=== PATIENT | male | born 1935 | race Caucasian/White ===

== ENCOUNTER 2019-07-03 08:34 | Inpatient (IN) ==
[2019-07-03] MEDS ORDERED: 0.9 % SODIUM CHLORIDE 1,000 ML IV ONE (08:46)
[2019-07-03] MEDS ORDERED: IPRATROPIUM/ALBUTEROL 3 ML AMPUL.NEB NEB ONE ×2 (08:46→10:09)
--- NOTE | 2019-07-03 08:57 | Emergency Department Note ---
SOB HPI - General Chief Complaint: Shortness of Breath/Dyspnea Stated Complaint: shortness of breath Time Seen by Provider: 07/03/19 08:55 Source: patient Mode of arrival: ambulatory Limitations: no limitations - History of Present Illness This patient has a history of COPD and for the last several days has had increasing shortness of breath wheezing and cough and has developed a fever. He said he had pneumonia twice last year. He is improving now after a DuoNeb treatment. - Related Data Home Medications Medication Instructions Recorded Confirmed latanoprost 0.005 % eye drops 1 drp OPHTHALMIC QHS ml 08/09/15 07/03/19 vit C-vit L-pbrdml-aicx ox-lutein 1 cap PO BID cap 08/09/15 07/03/19 226 mg-200 unit-5 mg-0.8 mg capsule Magnesium Oxide [Mag-Oxide 500 mg PO QDAY 07/03/19 07/03/19 Magnesium] Previous Rx's Medication Instructions Recorded budesonide-formoterol HFA 80 1 inh INHALATION BID #6.9 g 05/19/18 mcg-4.5 mcg/actuation aerosol inhaler albuterol sulfate 90 mcg/actuation 2 puff INHALATION Q6H PRN #18 g 03/08/19 aerosol inhaler trazodone 50 mg tablet 50 mg PO QHS PRN #90 tab 03/08/19 Allergies Allergy/AdvReac Type Severity Reaction Status Date / Time Amoxicillin Allergy Severe Hives, Verified 07/03/19 10:10 swelling, difficulty breathing Penicillins Allergy Unknown Hives, Verified 07/03/19 10:10 Swelling, difficulty breathing. Review of Systems All systems ED: reviewed and negative except as stated. Past Medical History - Past Medical History [facility] Narrative: Medical History (Last Reviewed 12/28/18 @ 16:25 by Rohit Martínez MD) Bronchitis with bronchospasm (Chronic) Diverticulitis of intestine (Resolved) Diverticulitis (Resolved) Acute exacerbation of chronic obstructive airways disease (Resolved) Urinary incontinence (Chronic) Tachycardia (Chronic) Reactive airway disease (Chronic 12/28/13) Prostate cancer (Chronic) Pneumonia (Resolved) Paresthesia (Chronic) Osteoarthritis (Chronic) Onychomycosis (Chronic) Macular degeneration (Chronic) Irritable bowel syndrome (Chronic) Insomnia (Chronic 12/06/13) Inguinal pain (Chronic 08/26/13) Hypertrophic pyloric stenosis (Chronic) Hypertension, essential (Chronic) Glaucoma (Chronic 08/26/13) Gastroesophageal reflux (Chronic) Fatigue (Chronic) Dysuria (Chronic) Diverticulosis of colon (Chronic) Dermatitis (Chronic) Colon adenoma (Chronic) COPD (chronic obstructive pulmonary disease) (Chronic) Bilateral cataracts (Chronic) Bronchitis (Chronic) Anxiety (Chronic 12/06/13) Past Surgical History (Last Reviewed 12/28/18 @ 16:25 by Rohit Martínez MD) Hx of esophagogastroduodenoscopy (Chronic) Hx of colonoscopy (Chronic) H/O prostatectomy (Resolved) History of cataract surgery (Resolved) History of cataract surgery (Resolved) Hx of detached retina repair (Inactive) Hx of elbow surgery (Inactive) Hx of inguinal hernia repair (Inactive) Hx of radical prostatectomy (Inactive) Family History (Last Reviewed 12/28/18 @ 16:25 by Rohit Martínez MD) none listed Diabetes mellitus Cardiac disease father Coronary artery disease Irritable bowel syndrome Acute myocardial infarction brother Irritable bowel syndrome Medical history: Reports: arthritis, COPD, hypertension, other (macular degeneration. Pneumonia 5 times 2012-mane. insomnia. Glaucoma. ). Denies: asthma, CHF, CAD (coronary artery disease), CVA, DVT, DM, pulmonary embolus Surgical history ED: Reports: cataract - Social History smoking status: Former smoker Alcohol use: Reports: Occasionally, Frequently (3 or 4 times a week a small glass of wine) Physical Exam Limitations: no limitations General appearance: alert Head: atraumatic Eye: Present: normal appearance ENT: Present: normal exam Neck: Present: normal inspection Chest: Present: normal inspection Respiratory: Present: wheezes Cardiovascular: Present: regular rate, normal rhythm, normal heart sounds Abdominal: Present: soft. Absent: distention, tenderness Extremities: Absent: pedal edema, pretibial edema Neurological: Present: alert Psychiatric: Present: normal affect Skin: Present: warm, dry Course Vital Signs Temperature 100.7 F H 07/03/19 08:37 Pulse Rate 107 H 07/03/19 08:37 Respiratory Rate 35 H 07/03/19 08:37 Blood Pressure 144/74 07/03/19 08:37 Pulse Oximetry (%) 85 L 07/03/19 08:37 Temperature 101.6 F H 07/03/19 11:05 Pulse Rate 111 H 07/03/19 11:19 Respiratory Rate 22 09/22/19 11:19 Blood Pressure 116/64 07/03/19 11:15 Pulse Oximetry (%) 91 07/03/19 11:19 Shortness of Breath/Dyspnea - [facility] Narrative Medical decision making narrative: This patient has bibasilar pneumonia. His breathing did improve with a DuoNeb treatment and some Solu-Medrol. He was febrile. We did blood cultures and gave him Rocephin and Levaquin. He will be admitted to the hospital by the hospitalist service. - Lab Data Lab results reviewed: Yes I reviewed the patient's lab results. Result diagrams: 07/03/19 08:47 07/03/19 09:56 Lab Results 07/03/19 07/03/19 07/03/19 Range/Units 08:46 08:47 08:47 WBC 13.6 H (4.5-11.0) K/mcL RBC 4.86 (4.50-5.90) M/mcL Hgb 14.8 (13.5-16.5) g/dL Hct 45.6 (41.0-55.0) % MCV 93.9 (80.0-100.0) fL MCH 30.5 (26.0-34.0) pg MCHC 32.5 (31.0-36.0) g/dL RDW 14.9 H (11.5-14.5) % Plt Count 144 (140-440) K/mcL MPV 9.3 (7.4-10.4) fL Gran % 89.6 H (38.0-78.0) % Lymph % (Auto) 2.4 L (15.5-49.0) % Keith % (Auto) 7.9 (1.0-12.0) % Eos % (Auto) 0 (0.0-7.0) % Baso % (Auto) 0.1 (0.0-2.0) % Gran # 12.2 H (1.8-8.0) K/mcL Lymph # (Auto) 0.3 L (1.5-4.8) K/mcL Keith # (Auto) 1.1 H (0.1-0.9) K/mcL Eos # (Auto) 0 (0.0-0.7) K/mcL Baso # (Auto) 0 (0.0-0.3) K/mcL VBG Lactic Acid 2.7 H (0.5-2.0) mmol/L Sodium (133-145) mmol/L Potassium (3.3-5.1) mmol/L Chloride (96-108) mmol/L Carbon Dioxide (22-30) mmol/L Anion Gap (8-16) BUN (8-23) mg/dl Creatinine (0.7-1.2) mg/dl GFR Calculation Glucose (70-105) mg/dL Calcium (8.6-10.4) mg/dl Total Bilirubin (0.0-1.0) mg/dL AST (0-37) U/l ALT (0-40) U/l Alkaline Phosphatase (39-117) U/L Troponin T (0-0.03) ng/ml Total Protein (5.9-8.4) gm/dL Albumin (3.2-5.2) gm/dL Globulin (2.2-3.7) gm/dL Albumin/Globulin Ratio (1.0-2.3) Procalcitonin 1.02 (<0.10) ng/mL 07/03/19 07/03/19 Range/Units 09:56 09:56 WBC (4.5-11.0) K/mcL RBC (4.50-5.90) M/mcL Hgb (13.5-16.5) g/dL Hct (41.0-55.0) % MCV (80.0-100.0) fL MCH (26.0-34.0) pg MCHC (31.0-36.0) g/dL RDW (11.5-14.5) % Plt Count (140-440) K/mcL MPV (7.4-10.4) fL Gran % (38.0-78.0) % Lymph % (Auto) (15.5-49.0) % Keith % (Auto) (1.0-12.0) % Eos % (Auto) (0.0-7.0) % Baso % (Auto) (0.0-2.0) % Gran # (1.8-8.0) K/mcL Lymph # (Auto) (1.5-4.8) K/mcL Keith # (Auto) (0.1-0.9) K/mcL Eos # (Auto) (0.0-0.7) K/mcL Baso # (Auto) (0.0-0.3) K/mcL VBG Lactic Acid (0.5-2.0) mmol/L Sodium 138 (133-145) mmol/L Potassium 4.9 (3.3-5.1) mmol/L Chloride 102 (96-108) mmol/L Carbon Dioxide 28 (22-30) mmol/L Anion Gap 8.0 (8-16) BUN 23 (8-23) mg/dl Creatinine 1.2 (0.7-1.2) mg/dl GFR Calculation 55 Glucose 122 H (70-105) mg/dL Calcium 9.0 (8.6-10.4) mg/dl Total Bilirubin 1.7 H (0.0-1.0) mg/dL AST 17 (0-37) U/l ALT 7 (0-40) U/l Alkaline Phosphatase 66 (39-117) U/L Troponin T < 0.01 (0-0.03) ng/ml Total Protein 6.6 (5.9-8.4) gm/dL Albumin 3.6 (3.2-5.2) gm/dL Globulin 3.0 (2.2-3.7) gm/dL Albumin/Globulin Ratio 1.2 (1.0-2.3) Procalcitonin (<0.10) ng/mL - Radiology Data Radiology results reviewed: Yes I reviewed the patient's radiology results. Disposition Pt seen by PENSIONHOLDER INFORMATION CLERK/PA only: No Clinical Impression: Community acquired pneumonia Disposition: Xfer As Inpt ([facility]) Condition: Good Referrals: Brennan Kelly DO [Primary Care Provider] - Time of Disposition: 11:22
[2019-07-03] MEDS ORDERED: LEVOFLOXACIN 750 MG/150 ML BAG IV ONE (09:12)
[2019-07-03] MEDS ORDERED: cefTRIAXone 1 GM VIAL IV ONE (09:12)
--- NOTE | 2019-07-03 09:21 | XRay Report ---
HISTORY: Dyspnea FINDINGS: There are bibasilar alveolar infiltrates, right worse than left. They are superimposed upon underlying pulmonary fibrosis. The infiltrates have become significantly worse since 12/20/18. There is COPD with milder interstitial fibrosis in the mid and upper lung campbell. The heart size is normal. IMPRESSION: Bibasilar pneumonia superimposed upon COPD Interpreted and Authenticated by: Thai Chavis 07/03/19
[2019-07-03 09:33] LABS: Basophils # (Auto) 0 K/mcL (0.0-0.3); Basophils % (Auto) 0.1 % (0.0-2.0); Eosinophils # (Auto) 0 K/mcL (0.0-0.7); Eosinophils % (Auto) 0 % (0.0-7.0); Granulocytes % (Auto) 89.6 % (38.0-78.0); Hematocrit 45.6 % (41.0-55.0); Hemoglobin 14.8 g/dL (13.5-16.5); Lymphocytes # (Auto) 0.3 K/mcL (1.5-4.8); Lymphocytes % (Auto) 2.4 % (15.5-49.0); Mean Cell Volume 93.9 fL (80.0-100.0); Mean Corpuscular HGB Conc 32.5 g/dL (31.0-36.0); Mean Platelet Volume 9.3 fL (7.4-10.4); Monocytes # (Auto) 1.1 K/mcL (0.1-0.9); Monocytes % (Auto) 7.9 % (1.0-12.0); Platelet Count 144 K/mcL (140-440); RBC 4.86 M/mcL (4.50-5.90); Red Cell Distribution Width 14.9 % (11.5-14.5); WBC 13.6 K/mcL (4.5-11.0)
[2019-07-03] MEDS ORDERED: methylPREDNISolone SOD SUCC 125 MG/2 ML VIAL IV ONE (10:08)
[2019-07-03] MEDS ORDERED: ACETAMINOPHEN 325 MG TABLET PO ONE (10:47)
[2019-07-03 10:53] LABS: ALT/SGPT 7 U/l (0-40); AST/SGOT 17 U/l (0-37); Albumin 3.6 gm/dL (3.2-5.2); Albumin/Globulin Ratio 1.2 (1.0-2.3); Alkaline Phosphatase 66 U/L (39-117); Bilirubin,Total 1.7 mg/dL (0.0-1.0); Blood Urea Nitrogen 23 mg/dl (8-23); Carbon Dioxide 28 mmol/L (22-30); Chloride 102 mmol/L (96-108); Glomerular Filtration Rate 55; Glucose 122 mg/dL (70-105)
--- NOTE | 2019-07-03 12:39 | Internal Med History&Physical ---
Medical - H&P: [facility] Patient information: Note initiated : 07/03/19 at 12:34 pm Service Date, if different from initiated Date: [] Patient: Sadiq Hurley a 84 y/o M admitted on for shortness of breath. Chief Complaint: [] History of present illness: Mr. Hurley is a 84 year old M Presents with shortness of breath fever and chills. She reports he woke up feeling fine on Thursday but that evening he started developing increased shortness of breath. He has a chronic cough or sputum COPD but that had not changed. Thursday state about the same and then Thursday morning felt like his symptoms are much worse. In the ED he was febrile with leukocytosis chest x-ray showed bibasilar infiltrates right and some fibrosis appearance. Elevated lactate and procalcitonin as well. He has left lateral chest wall pleuritic pain with cough and deep breathing. He states this feels like his previous pneumonia. Did receive some breathing treatments in the ED which the report shows he had some improvement. A bit of nausea this morning. He was hypoxic in the 70s and 80s when he came in and now low 90s on several liters of oxygen. Patient has history of recurrent pneumonias. He did see Dr. Martínez after her pneumonia episode in December which can should continue to hold infiltrate in the right lower lobe. In his note he was planning ordered a CT to evaluate for these recurrent pneumonias and persistent infiltrate which was not done. he has received Pneumovax past. Review of Systems: Pertinent positives as above. Denies headache/vomiting/abdominal pain/diarrhea. Remaining 10 point review of system reviewed negative Medical - H&P: PMH Medical history: Medical History (Last Reviewed 12/28/18 @ 16:25 by Rohit Martínez MD) Bronchitis with bronchospasm (Chronic) Diverticulitis of intestine (Resolved) Diverticulitis (Resolved) Acute exacerbation of chronic obstructive airways disease (Resolved) Urinary incontinence (Chronic) Tachycardia (Chronic) Reactive airway disease (Chronic 12/28/13) Prostate cancer (Chronic) Pneumonia (Resolved) Paresthesia (Chronic) Osteoarthritis (Chronic) Onychomycosis (Chronic) Macular degeneration (Chronic) Irritable bowel syndrome (Chronic) Insomnia (Chronic 12/06/13) Inguinal pain (Chronic 08/26/13) Hypertrophic pyloric stenosis (Chronic) Hypertension, essential (Chronic) Glaucoma (Chronic 08/26/13) Gastroesophageal reflux (Chronic) Fatigue (Chronic) Dysuria (Chronic) Diverticulosis of colon (Chronic) Dermatitis (Chronic) Colon adenoma (Chronic) COPD (chronic obstructive pulmonary disease) (Chronic) Bilateral cataracts (Chronic) Bronchitis (Chronic) Anxiety (Chronic 12/06/13) Past Surgical History (Last Reviewed 12/28/18 @ 16:25 by Rohit Martínez MD) Hx of esophagogastroduodenoscopy (Chronic) Hx of colonoscopy (Chronic) H/O prostatectomy (Resolved) History of cataract surgery (Resolved) History of cataract surgery (Resolved) Hx of detached retina repair (Inactive) Hx of elbow surgery (Inactive) Hx of inguinal hernia repair (Inactive) Hx of radical prostatectomy (Inactive) Family History (Last Reviewed 12/28/18 @ 16:25 by Rohit Martínez MD) none listed Diabetes mellitus Cardiac disease father Coronary artery disease Irritable bowel syndrome Acute myocardial infarction brother Irritable bowel syndrome Social History (Last Updated 05/26/19 @ 19:11 by Brennan Kelly DO) Quit smoking 2030 years ago Has 1 glass of wine per night Ambulates independently Lives at home with his Medical - H&P: Meds Home Medications Medication Instructions Recorded Confirmed Type latanoprost 0.005 % eye drops 1 drp OPHTHALMIC QHS ml 08/09/15 07/03/19 History vit C-vit B-fajkjn-zkbb ox-lutein 1 cap PO BID cap 08/09/15 07/03/19 History 226 mg-200 unit-5 mg-0.8 mg capsule budesonide-formoterol HFA 80 1 inh INHALATION BID #6.9 g 05/19/18 07/03/19 Rx mcg-4.5 mcg/actuation aerosol inhaler albuterol sulfate 90 mcg/actuation 2 puff INHALATION Q6H PRN #18 g 03/08/19 07/03/19 Rx aerosol inhaler trazodone 50 mg tablet 50 mg PO QHS PRN #90 tab 03/08/19 07/03/19 Rx Magnesium Oxide [Mag-Oxide 500 mg PO QDAY 07/03/19 07/03/19 History Magnesium] Allergies Allergy/AdvReac Type Severity Reaction Status Date / Time Amoxicillin Allergy Severe Hives, Verified 07/03/19 10:10 swelling, difficulty breathing Penicillins Allergy Unknown Hives, Verified 07/03/19 10:10 Swelling, difficulty breathing. Medical - H&P: Exam - Constitutional Vitals: Temp Pulse Resp BP Pulse Ox 101.6 F H 107 H 19 103/63 92 07/03/19 11:05 07/03/19 12:00 07/03/19 12:00 07/03/19 12:00 07/03/19 12:00 Exam: General: Alert, Awake, No acute Distress Eyes/N/T: EOMI, PEERL, DMM Head/Neck: neck supple, normocephalic atraumatic CV: RRR, No murmurs, normal s1/s2 Pulm: No wheezing at this time, mildly diminished at bases abd: soft, nontender, +BS x4 Ext: no clubbing/cyanosis/edema Neuro: Alert, no focal deficits, moves all extremities, CN 2-12 grossly intact, symmetrical strength b/l upper/lower, sensations intact b/l upper/lower Skin: warm/dry Medical - H&P: Reslt - Labs CBC & Chem 7: 07/03/19 08:47 07/03/19 09:56 Labs: Short CBC 07/03/19 Range/Units 08:47 WBC 13.6 H (4.5-11.0) K/mcL Hgb 14.8 (13.5-16.5) g/dL Hct 45.6 (41.0-55.0) % Plt Count 144 (140-440) K/mcL BMP 07/03/19 09:56 Sodium 138 Potassium 4.9 Chloride 102 Carbon Dioxide 28 BUN 23 Creatinine 1.2 Glucose 122 H Calcium 9.0 Cardiac Enzymes 07/03/19 Range/Units 09:56 Troponin T < 0.01 (0-0.03) ng/ml Liver Function 07/03/19 Range/Units 09:56 Total Bilirubin 1.7 H (0.0-1.0) mg/dL AST 17 (0-37) U/l ALT 7 (0-40) U/l Alkaline Phosphatase 66 (39-117) U/L Albumin 3.6 (3.2-5.2) gm/dL - Impressions Bibasilar infiltrates on chest x-ray right greater than left Medical - H&P: A/P - Narrative A/P Narrative: A: *Acute hypoxic respiratory failure: 2/2 pneumonia *CAP: History of pneumonias *Sepsis: *volume depletion: *COPD (not on home oxygen): *h/o of grade I diastolic LV dysfxn: * P: -IVF's -f/u Lactate -ABx, pending BC/SC -trend PCT -nebs, IS/Acapella -CT chest in AM -pt/ot - -ppx: lovenox DNR
[2019-07-03] MEDS ORDERED: ACETAMINOPHEN 325 MG TABLET PO PRN (13:31)
[2019-07-03] MEDS ORDERED: POLYETHYLENE GLYCOL 3350 17 GM PACKET PO PRN (13:31)
[2019-07-03] MEDS ORDERED: POTASSIUM CHLORIDE 40 MEQ in DEXTROSE 5% IN WATER 500 ML IV PRN (13:31)
[2019-07-03] MEDS ORDERED: cefTRIAXone 1 GM in DEXTROSE 5% IN WATER 50 ML IV SCH (13:31)
[2019-07-03] MEDS ORDERED: LACTULOSE 20 GM/30 ML ORAL.SOL PO PRN (13:31)
[2019-07-03] MEDS ORDERED: MAGNESIUM SULFATE 2 GM/50 ML BAG IV PRN (13:31)
[2019-07-03] MEDS ORDERED: POTASSIUM CHLORIDE 20 MEQ TABLET PO PRN ×2 (13:31)
[2019-07-03] MEDS ORDERED: ONDANSETRON 4 MG/2 ML VIAL IV PRN (13:31)
[2019-07-03] MEDS: 0.9 % SODIUM CHLORIDE 1,000 ML IV SCH ×2 (13:36→22:33)
[2019-07-03] MEDS: 0.9 % SODIUM CHLORIDE 10 ML SYRINGE IV SCH ×2 (13:59→21:43)
[2019-07-03] MEDS: IPRATROPIUM/ALBUTEROL 3 ML AMPUL.NEB NEB SCH ×2 (14:04→18:57)
[2019-07-03] MEDS: AZITHROMYCIN 500 MG in DEXTROSE 5% IN WATER 250 ML IV SCH (14:11)
[2019-07-03] MEDS ORDERED: SENNOSIDES 1 TABLET PO PRN (21:00)
[2019-07-03] MEDS: LATANOPROST OPHTH DROPS 2.5ML BOTTLE OU SCH (21:04)
[2019-07-03] MEDS: DOCUSATE SODIUM 100 MG CAPSULE PO SCH (21:04)
[2019-07-03] MEDS: traZODone HCL 50 MG TABLET PO PRN (22:19)
[2019-07-04] MEDS: IPRATROPIUM/ALBUTEROL 3 ML AMPUL.NEB NEB SCH ×4 (00:42→20:10)
[2019-07-04] MEDS: 0.9 % SODIUM CHLORIDE 1,000 ML IV SCH (00:42)
[2019-07-04] MEDS: 0.9 % SODIUM CHLORIDE 10 ML SYRINGE IV SCH ×3 (04:37→20:57)
[2019-07-04 05:29] LABS: Appearance,Urine CLEAR; Bilirubin,Urine NEG (NEG); Color,Urine YELLOW; Glucose,Urine (UA) 50 mg/dL (NEG); Ketones,Urine NEG (NEG); Leukocyte Esterase,Urine NEG /uL (NEG); Nitrate,Urine NEG (NEG); Protein,Urine NEG (NEG); Specific Gravity,Urine 1.015 (1.000-1.035); Urine Blood NEG mg/dL (<0.03); Urobilinogen,Urine NEG (NEG)
[2019-07-04 06:02] LABS: Basophils # (Auto) 0 K/mcL (0.0-0.3); Basophils % (Auto) 0 % (0.0-2.0); Eosinophils # (Auto) 0 K/mcL (0.0-0.7); Eosinophils % (Auto) 0 % (0.0-7.0); Granulocytes % (Auto) 87.9 % (38.0-78.0); Hematocrit 36.9 % (41.0-55.0); Lymphocytes # (Auto) 0.3 K/mcL (1.5-4.8); Lymphocytes % (Auto) 3.6 % (15.5-49.0); Mean Cell Volume 93.8 fL (80.0-100.0); Mean Corpuscular HGB Conc 32.5 g/dL (31.0-36.0); Mean Platelet Volume 8.8 fL (7.4-10.4); Monocytes # (Auto) 0.7 K/mcL (0.1-0.9); Monocytes % (Auto) 8.5 % (1.0-12.0); Platelet Count 100 K/mcL (140-440); RBC 3.93 M/mcL (4.50-5.90); Red Cell Distribution Width 14.4 % (11.5-14.5); WBC 8.2 K/mcL (4.5-11.0)
--- NOTE | 2019-07-04 07:27 | Internal Med Progress Note ---
Medical - PN: Subj Patient information: Note initiated : 07/04/19 at 7:22 am Service Date, if different from initiated Date: [] Patient: Sadiq Hurley a 84 y/o M admitted on 07/03/19 for shortness of breath. Chief Complaint: [] Interval history: Mr. Hurley is a 84 year old M Presents with shortness of breath fever and chills. She reports he woke up feeling fine on Thursday but that evening he started developing increased shortness of breath. He has a chronic cough or sputum COPD but that had not changed. Thursday state about the same and then Thursday morning felt like his symptoms are much worse. In the ED he was febrile with leukocytosis chest x-ray showed bibasilar infiltrates right and some fibrosis appearance. Elevated lactate and procalcitonin as well. He has left lateral chest wall pleuritic pain with cough and deep breathing. He states this feels like his previous pneumonia. Did receive some breathing treatments in the ED which the report shows he had some improvement. A bit of nausea this morning. He was hypoxic in the 70s and 80s when he came in and now low 90s on several liters of oxygen. Patient has history of recurrent pneumonias. He did see Dr. Martínez after her pneumonia episode in December which can should continue to hold infiltrate in the right lower lobe. In his note he was planning ordered a CT to evaluate for these recurrent pneumonias and persistent infiltrate which was not done. he has received Pneumovax past. 07/04 Had a hard time sleeping because of interruptions. Otherwise no new complaints. Occasional cough. Shortness of breath is much improved from yesterday. Left- sided pleuritic chest pain is better. Review of Systems: denies headache/fever/chills/nausea/vomiting/chest or abdominal pain/diarrhea. Otherwise see above. - Constitutional Vitals: Vital Signs Temp Pulse Resp BP Pulse Ox 97.9 F 68 18 112/67 91 07/04/19 04:00 07/04/19 07:12 07/04/19 04:00 07/04/19 04:00 07/04/19 07:08 Period Temp Pulse Resp BP Sys/Gordon Pulse Ox Last 24 Hr 97.5 F-101.6 F 47-112 11-35 95-144/53-74 85-96 Intake and Output 07/03/19 07/04/19 07/04/19 21:59 05:59 13:59 Intake Total 1710 1200 Output Total 550 500 Balance 1160 700 Weight 69.4 kg Intake & Output: Intake & Output 07/03/19 07/04/19 07/04/19 21:59 05:59 13:59 Intake Total 1710 1200 Output Total 550 500 Balance 1160 700 Weight 69.4 kg Intake: IV 250 1000 Sodium Chloride 0.9% 1,000 ml @ 1000 100 mls/hr IV .Q10H RICHARD Rx#: [id number] Zithromax 500 mg In Dextrose 5% 250 in Water 250 ml @ 250 mls/hr IV DAILY RICHARD Rx#:[id number] Oral 1460 200 Output: Void Amount 550 500 Other: Meal Dinner Percent of Meal Consumed 75% Urine Appearance Clear Clear Urine Color Dark Yellow Dark Yellow Exam: General: Alert, Awake, No acute Distress Eyes/N/T: EOMI, Head/Neck: neck supple, CV: RRR, No murmurs, Pulm: No wheezing, mildly diminished at bases, mild rhonchi/rales left base abd: soft, nontender, +BS x4 Ext: no clubbing/cyanosis/edema Neuro: Alert, no focal deficits, moves all extremities, Skin: warm/dry Medical - PN: Obj Da - Labs CBC & Chem 7: 07/04/19 04:35 07/04/19 04:35 Labs: Abnormal Lab Results 07/04/19 07/04/19 07/03/19 04:35 04:30 09:56 WBC RBC 3.93 L Hgb 12.0 L Hct 36.9 L RDW Plt Count 100 L Gran % 87.9 H Lymph % (Auto) 3.6 L Gran # Lymph # (Auto) 0.3 L Arthur # (Auto) VBG Lactic Acid Glucose 122 H Total Bilirubin 1.7 H Urine Glucose (UA) 50 A 07/03/19 07/03/19 08:47 08:47 WBC 13.6 H RBC Hgb Hct RDW 14.9 H Plt Count Gran % 89.6 H Lymph % (Auto) 2.4 L Gran # 12.2 H Lymph # (Auto) 0.3 L Arthur # (Auto) 1.1 H VBG Lactic Acid 2.7 H Glucose Total Bilirubin Urine Glucose (UA) Meds: Medications Acetaminophen (Tylenol) 650 mg PO Q6HP PRN PRN Reason: PAIN/FEVER > 101 Albuterol/Ipratropium (Duoneb) 3 ml NEB Q6HRT [facility] Last Admin: 07/04/19 07:11 Dose: 3 ml Documented by: Ceftriaxone Sodium (Rocephin) 1 gm IV DAILY [facility] Docusate Sodium (Colace) 100 mg PO BID [facility] Last Admin: 07/03/19 21:04 Dose: Not Given Documented by: Enoxaparin Sodium (Lovenox) 40 mg SQ DAILY [facility] Potassium Chloride 40 meq/ (Dextrose) 520 mls @ 130 mls/hr IV UD PRN PRN Reason: Potassium < 3 Magnesium Sulfate (Magnesium Sulfate) 2 gm in 50 mls @ 50 mls/hr IV UD PRN PRN Reason: Magnesium </= 1.6 Sodium Chloride (Sodium Chloride 0.9%) 1,000 mls @ 100 mls/hr IV .Q10H [facility] Stop: 07/04/19 09:30 Last Admin: 07/04/19 00:42 Dose: 100 mls/hr Documented by: Azithromycin 500 mg/ Dextrose 250 mls @ 250 mls/hr IV DAILY [facility]; Protocol Stop: 07/05/19 09:59 Last Infusion: 07/03/19 15:15 Dose: Infused Documented by: Lactulose (Cephulac) 10 gm PO DAILYP PRN PRN Reason: Constipation Latanoprost (Xalatan Ophth Drops) 1 gtt OU HS [facility] Last Admin: 07/03/19 21:04 Dose: 1 gtt Documented by: Ondansetron HCl (Zofran) 4 mg IV Q4HP PRN PRN Reason: Nausea And Vomiting Budesonide/Formoterol Fumarate [Symbicort 80-4.5 Mcg] Inhaler 1 dose INH BID [facility] Last Admin: 07/03/19 21:04 Dose: 1 dose Documented by: Polyethylene Glycol (Miralax) 17 gm PO DAILYP PRN PRN Reason: Constipation Potassium Chloride (Kdur) 40 meq PO UD PRN PRN Reason: Potssium is 3-3.5 Potassium Chloride (Kdur) 40 meq PO UD PRN PRN Reason: Potassium < 3 Prednisone (Prednisone) 60 mg PO QAC [facility] Senna (Senokot) 2 tab PO HSP PRN PRN Reason: Constipation Sodium Chloride (Saline Flush) 10 ml IV Q8 RICHARD Last Admin: 07/04/19 04:37 Dose: Not Given Documented by: Trazodone HCl (Desyrel) 50 mg PO HSP PRN PRN Reason: Insomnia Last Admin: 07/03/19 22:19 Dose: 50 mg Documented by: Medical - PN: A/P - Time Spent With Patient Total time spent is greater than 50% in coordination of care (as documented) at patient's floor/unit and/or counseling patient: - Narrative A/P Narrative: A: *Acute hypoxic respiratory failure: 2/2 pneumonia -on 3L NC with sats mid 90's *CAP: History of pneumonias -urine strep neg *Sepsis: -leukocytosis/lactic acidosis resolved *volume depletion: *COPD (not on home oxygen): *h/o of grade I diastolic LV dysfxn: * P: -rocephing/azithro, pending BC/SC -trend PCT -nebs, IS/Acapella -CT chest for h/o frequent PNA's and residually abnormal cxr -pt/ot - -ppx: lovenox DNR Medical - PN: Qual - VTE Deep Vein Thrombosis/Pulmonary Embolism Present on Admission: No
[2019-07-04] MEDS ORDERED: IOPAMIDOL 100 ML BOTTLE IV ONE ×2 (07:41→08:01)
[2019-07-04 07:53] LABS: ALT/SGPT 7 U/l (0-40); AST/SGOT 13 U/l (0-37); Albumin/Globulin Ratio 1.1 (1.0-2.3); Alkaline Phosphatase 62 U/L (39-117); Bilirubin,Direct 0.2 mg/dL (0.0-0.3); Bilirubin,Total 0.7 mg/dL (0.0-1.0); Blood Urea Nitrogen 27 mg/dl (8-23); Calcium 9.3 mg/dl (8.6-10.4); Carbon Dioxide 25 mmol/L (22-30); Chloride 104 mmol/L (96-108); Globulin 2.8 gm/dL (2.2-3.7); Glomerular Filtration Rate 61; Glucose 130 mg/dL (70-105); Lactate Dehydrogenase 138 U/L (94-250); Phosphorous 2.6 mg/dL (2.7-4.5); Triglycerides 31 mg/dl (<150); Uric Acid 3.9 mg/dL (2.5-8.0)
[2019-07-04] MEDS ORDERED: predniSONE 20 MG TABLET PO SCH (08:00)
[2019-07-04] MEDS: DOCUSATE SODIUM 100 MG CAPSULE PO SCH ×2 (08:57→20:57)
[2019-07-04] MEDS: ENOXAPARIN 40 MG/0.4 ML SYRINGE SQ SCH (08:58)
[2019-07-04] MEDS: cefTRIAXone 1 GM VIAL IV SCH (09:00)
[2019-07-04] MEDS: AZITHROMYCIN 500 MG in DEXTROSE 5% IN WATER 250 ML IV SCH (09:00)
[2019-07-04 11:59] LABS: Band Neutrophils % 3 % (0-10); Monocytes % (Manual) 13 % (1-12); Platelet Estimate DECREASED (NORMAL); RBC Morphology NORMAL (NORMAL); Segmented Neutrophils % 84 % (38-78)
--- NOTE | 2019-07-04 18:32 | Cat Scan Report ---
CLINICAL INFORMATION: Shortness of breath and recurrent pneumonia COMPARISON: Chest CT 06/16/2007. TECHNIQUE: 80 cc of Isovue-370 were injected intravenously, and 25 seconds later, 0.625 mm helical slices were obtained from the lung apices through the bases. Following reconstruction, 2.5 mm sagittal, coronal and axial reformations were processed and reviewed at lung, mediastinal and bone windows. 7 mm axial MIPS were also obtained to optimize pulmonary nodule detection. The exam was performed using radiation dose optimization techniques including, but not limited to, automated exposure control, adjustment of the mA and/or kV according to patient size and use of iterative reconstruction technique. FINDINGS: Pulmonary parenchymal windows show moderate centrilobular edema measuring chronic bronchitis (elevated lung volumes with wall thickening of the bronchi) and multiple bullae predominantly within the upper lobes. This was also seen on previous study. Moderate consolidated infiltrates in both posterior lower lobes with small bilateral pleural effusions appreciated. There is also moderate consolidated atelectasis with volume loss in the right middle lobe. There are two nodules in the superior segment of the right lower lobe on image 76, 9 mm and 5 mm, respectively. These were not present on the previous study. The mediastinal windows of the heart is normal in size. There appears to be a 4 cm thrombus or mass within the right atrium. Scattered atherosclerotic plaque present in the coronary arteries. The pulmonary arteries are normal in diameter and well opacified without evidence of embolus. Thoracic aorta is also normal diameter. Mildly enlarged lymph nodes in lower mediastinum and both hilar region are likely benign reactive lymph nodes related to infiltrate. They show slight increase in size and number from previous study. The esophagus is grossly normal. Thyroid unremarkable. Bones and soft tissues of the chest show degenerative changes of thoracic spine, no focal osseous lesion. Images should the area abdomen show diminutive liver with multiple loops of small large bowel interposed between the anterior liver and abdominal wall. Patient may have cirrhosis. IMPRESSION: 1. Moderate alveolar infiltrates in both posterior lower and right middle lobes. Aspiration should be considered. Small bilateral pleural effusions. Mildly enlarged bilateral hilar and lower mediastinal lymph nodes are almost certainly benign reactive lymph nodes. 2. Moderate centrilobular emphysema 3. 4 cm thrombus or, less likely, mass in the right atrium. Suggest transesophageal echo for better evaluation. 4. Two adjacent nodules in the superior segment right lower lobe, 9 mm and 5 mm respectively which were not seen on previous CT. This could potentially indicate malignancy. Consider follow-up chest CT in 6-12 months if clinically indicated 5. Chronic changes - incompletely imaged Interpreted and Authenticated by: Brennan Small 07/04/19
[2019-07-04] MEDS: LATANOPROST OPHTH DROPS 2.5ML BOTTLE OU SCH (20:57)
[2019-07-04] MEDS: traZODone HCL 50 MG TABLET PO PRN (21:13)
[2019-07-05] MEDS: IPRATROPIUM/ALBUTEROL 3 ML AMPUL.NEB NEB SCH ×4 (00:29→19:32)
[2019-07-05] MEDS: 0.9 % SODIUM CHLORIDE 10 ML SYRINGE IV SCH ×3 (04:12→20:18)
[2019-07-05 06:45] LABS: Hemoglobin 11.4 g/dL (13.5-16.5); Mean Cell Volume 92.1 fL (80.0-100.0); Mean Corpuscular HGB Conc 33.5 g/dL (31.0-36.0); Mean Platelet Volume 9.6 fL (7.4-10.4); Platelet Count 113 K/mcL (140-440); RBC 3.69 M/mcL (4.50-5.90); Red Cell Distribution Width 14.8 % (11.5-14.5)
[2019-07-05 07:11] LABS: ALT/SGPT 8 U/l (0-40); AST/SGOT 13 U/l (0-37); Albumin/Globulin Ratio 1.1 (1.0-2.3); Alkaline Phosphatase 62 U/L (39-117); Bilirubin,Direct < 0.2 mg/dL (0.0-0.3); Bilirubin,Total 0.4 mg/dL (0.0-1.0); Blood Urea Nitrogen 32 mg/dl (8-23); Calcium 9.1 mg/dl (8.6-10.4); Carbon Dioxide 24 mmol/L (22-30); Chloride 103 mmol/L (96-108); Globulin 2.8 gm/dL (2.2-3.7); Glomerular Filtration Rate 61; Glucose 120 mg/dL (70-105); Lactate Dehydrogenase 124 U/L (94-250); Phosphorous 2.7 mg/dL (2.7-4.5); Triglycerides 58 mg/dl (<150); Uric Acid 4.7 mg/dL (2.5-8.0)
--- NOTE | 2019-07-05 07:39 | Internal Med Progress Note ---
Medical - PN: Subj Patient information: Note initiated : 07/05/19 at 7:33 am Service Date, if different from initiated Date: [] Patient: Sadiq Hurley a 84 y/o M admitted on 07/03/19 for shortness of breath. Chief Complaint: [] Interval history: Mr. Hurley is a 84 year old M Presents with shortness of breath fever and chills. She reports he woke up feeling fine on Thursday but that evening he started developing increased shortness of breath. He has a chronic cough or sputum COPD but that had not changed. Thursday state about the same and then Thursday morning felt like his symptoms are much worse. In the ED he was febrile with leukocytosis chest x-ray showed bibasilar infiltrates right and some fibrosis appearance. Elevated lactate and procalcitonin as well. He has left lateral chest wall pleuritic pain with cough and deep breathing. He states this feels like his previous pneumonia. Did receive some breathing treatments in the ED which the report shows he had some improvement. A bit of nausea this morning. He was hypoxic in the 70s and 80s when he came in and now low 90s on several liters of oxygen. Patient has history of recurrent pneumonias. He did see Dr. Martínez after her pneumonia episode in December which can should continue to hold infiltrate in the right lower lobe. In his note he was planning ordered a CT to evaluate for these recurrent pneumonias and persistent infiltrate which was not done. he has received Pneumovax past. 07/04 Had a hard time sleeping because of interruptions. Otherwise no new complaints. Occasional cough. Shortness of breath is much improved from yesterday. Left- sided pleuritic chest pain is better. 07/05 Slept much better last night. Has productive cough occasionally of some bloody mucus. Shortness of breath much better. No left chest wall pain and he feels like he can expand his lungs easier. Review of Systems: denies headache/fever/chills/nausea/vomiting/chest or abdominal pain/diarrhea. Otherwise see above. - Constitutional Vitals: Vital Signs Temp Pulse Resp BP Pulse Ox 98.5 F 82 16 102/63 95 07/05/19 04:00 07/05/19 04:00 07/05/19 04:00 07/05/19 04:00 07/05/19 04:00 Period Temp Pulse Resp BP Sys/Gordon Pulse Ox Last 24 Hr 97.8 F-98.5 F 77-86 16-24 97-117/49-67 88-97 Intake and Output 07/04/19 07/05/19 07/05/19 21:59 05:59 13:59 Intake Total 200 800 Output Total 600 400 Balance -400 400 Weight 72.575 kg Intake & Output: Intake & Output 07/04/19 07/05/19 07/05/19 21:59 05:59 13:59 Intake Total 200 800 Output Total 600 400 Balance -400 400 Weight 72.575 kg Intake: Oral 200 800 Output: Void Amount 600 400 Other: Meal Dinner Percent of Meal Consumed 100% Urine Appearance Clear Clear Urine Color Dark Yellow Dark Yellow Stool Size Large Stool Color Brown Stool Consistency Normal for Patient Soft # Bowel Movements 1 Exam: General: Alert, Awake, No acute Distress Eyes/N/T: EOMI, Head/Neck: neck supple, CV: RRR, No murmurs, Pulm: No wheezing, proving aeration bilaterally, subtle rhonchi/rales much improved abd: soft, nontender, +BS x4 Ext: no clubbing/cyanosis/edema Neuro: Alert, no focal deficits, moves all extremities, Skin: warm/dry Medical - PN: Obj Da - Labs CBC & Chem 7: 07/05/19 04:25 07/05/19 04:25 Labs: Abnormal Lab Results 07/05/19 07/05/19 07/04/19 04:25 04:25 04:35 WBC RBC 3.69 L Hgb 11.4 L Hct 34.0 L RDW 14.8 H Plt Count 113 L Gran % Lymph % (Auto) Gran # Lymph # (Auto) Davidson # (Auto) Seg Neutrophils % 84 H Monocytes % (Manual) 13 H Platelet Estimate Decreased A VBG Lactic Acid BUN 32 H Glucose 120 H Phosphorus Total Bilirubin Total Protein 5.8 L Albumin 3.0 L Urine Glucose (UA) 07/04/19 07/04/19 07/04/19 04:35 04:35 04:30 WBC RBC 3.93 L Hgb 12.0 L Hct 36.9 L RDW Plt Count 100 L Gran % 87.9 H Lymph % (Auto) 3.6 L Gran # Lymph # (Auto) 0.3 L Davidson # (Auto) Seg Neutrophils % Monocytes % (Manual) Platelet Estimate VBG Lactic Acid BUN 27 H Glucose 130 H Phosphorus 2.6 L Total Bilirubin Total Protein 5.8 L Albumin 3.0 L Urine Glucose (UA) 50 A 07/03/19 07/03/19 07/03/19 09:56 08:47 08:47 WBC 13.6 H RBC Hgb Hct RDW 14.9 H Plt Count Gran % 89.6 H Lymph % (Auto) 2.4 L Gran # 12.2 H Lymph # (Auto) 0.3 L Davidson # (Auto) 1.1 H Seg Neutrophils % Monocytes % (Manual) Platelet Estimate VBG Lactic Acid 2.7 H BUN Glucose 122 H Phosphorus Total Bilirubin 1.7 H Total Protein Albumin Urine Glucose (UA) Meds: Medications Acetaminophen (Tylenol) 650 mg PO Q6HP PRN PRN Reason: PAIN/FEVER > 101 Albuterol/Ipratropium (Duoneb) 3 ml NEB Q6HRT [facility] Last Admin: 07/05/19 00:29 Dose: 3 ml Documented by: Ceftriaxone Sodium (Rocephin) 1 gm IV DAILY [facility] Last Admin: 07/04/19 09:00 Dose: 1 gm Documented by: Docusate Sodium (Colace) 100 mg PO BID [facility] Last Admin: 07/04/19 20:57 Dose: Not Given Documented by: Enoxaparin Sodium (Lovenox) 40 mg SQ DAILY [facility] Last Admin: 07/04/19 08:58 Dose: 40 mg Documented by: Potassium Chloride 40 meq/ (Dextrose) 520 mls @ 130 mls/hr IV UD PRN PRN Reason: Potassium < 3 Magnesium Sulfate (Magnesium Sulfate) 2 gm in 50 mls @ 50 mls/hr IV UD PRN PRN Reason: Magnesium </= 1.6 Azithromycin 500 mg/ Dextrose 250 mls @ 250 mls/hr IV DAILY [facility]; Protocol Stop: 07/05/19 09:59 Last Admin: 07/04/19 09:00 Dose: 250 mls/hr Documented by: Lactulose (Cephulac) 10 gm PO DAILYP PRN PRN Reason: Constipation Latanoprost (Xalatan Ophth Drops) 1 gtt OU HS [facility] Last Admin: 07/04/19 20:57 Dose: 1 gtt Documented by: Ondansetron HCl (Zofran) 4 mg IV Q4HP PRN PRN Reason: Nausea And Vomiting Budesonide/Formoterol Fumarate [Symbicort 80-4.5 Mcg] Inhaler 1 dose INH BID [facility] Last Admin: 07/04/19 20:57 Dose: 1 dose Documented by: Polyethylene Glycol (Miralax) 17 gm PO DAILYP PRN PRN Reason: Constipation Potassium Chloride (Kdur) 40 meq PO UD PRN PRN Reason: Potssium is 3-3.5 Potassium Chloride (Kdur) 40 meq PO UD PRN PRN Reason: Potassium < 3 Pred[facility]Pred[facility]) [facility] Last Admin: 07/04/19 08:56 Dose: 60 mg Documented by: Senna (Senokot) 2 tab PO HSP PRN PRN Reason: Constipation Sodium Chloride (Saline Flush) 10 ml IV Q8 [facility] Last Admin: 07/05/19 04:12 Dose: 10 ml Documented by: Trazodone HCl (Desyrel) 50 mg PO HSP PRN PRN Reason: Insomnia Last Admin: 07/04/19 21:13 Dose: 50 mg Documented by: Medical - PN: A/P - Time Spent With Patient Total time spent is greater than 50% in coordination of care (as documented) at patient's floor/unit and/or counseling patient: - Narrative A/P Narrative: A: *Acute hypoxic respiratory failure: 2/2 pneumonia -on 3L NC with sats mid 90's *CAP (frequent h/o PNA): -urine strep neg -CT chest concerning for aspiration -PCT improving *Sepsis: resolved -leukocytosis/lactic acidosis resolved *volume depletion: improved *COPD (not on home oxygen): *h/o of grade I diastolic LV dysfxn: *Lung nodules 9mm and 5mm P: -rocephing/azithro, pending BC/SC -trend PCT -nebs, IS/Acapella -CT chest for h/o frequent PNA's and residually abnormal cxr -pt/ot -ST eval -?thrombus right atrium on CT, obtain echo -f/u CT chest outpt for lung nodules -ppx: lovenox DNR Medical - PN: Qual - VTE Deep Vein Thrombosis/Pulmonary Embolism Present on Admission: No
[2019-07-05 09:06] LABS: Band Neutrophils % 6 % (0-10); Lymphocytes % 5 % (15-49); Monocytes % (Manual) 4 % (1-12); Platelet Estimate DECREASED (NORMAL); RBC Morphology NORMAL (NORMAL); Segmented Neutrophils % 85 % (38-78)
[2019-07-05] MEDS: DOCUSATE SODIUM 100 MG CAPSULE PO SCH ×2 (09:49→20:17)
[2019-07-05] MEDS: predniSONE 20 MG TABLET PO SCH (09:51)
[2019-07-05] MEDS: AZITHROMYCIN 500 MG in DEXTROSE 5% IN WATER 250 ML IV SCH (09:52)
[2019-07-05] MEDS: ENOXAPARIN 40 MG/0.4 ML SYRINGE SQ SCH (09:52)
[2019-07-05] MEDS: cefTRIAXone 1 GM VIAL IV SCH (09:53)
[2019-07-05] MEDS: LATANOPROST OPHTH DROPS 2.5ML BOTTLE OU SCH ×2 (20:17→21:28)
[2019-07-05] MEDS: traZODone HCL 50 MG TABLET PO PRN (21:39)
[2019-07-06] MEDS: IPRATROPIUM/ALBUTEROL 3 ML AMPUL.NEB NEB SCH ×4 (00:42→18:29)
[2019-07-06 06:13] LABS: Blood Urea Nitrogen 23 mg/dl (8-23); Calcium 8.9 mg/dl (8.6-10.4); Carbon Dioxide 27 mmol/L (22-30); Chloride 102 mmol/L (96-108); Glomerular Filtration Rate 69; Glucose 102 mg/dL (70-105)
--- NOTE | 2019-07-06 07:50 | Internal Med Progress Note ---
Medical - PN: Subj Patient information: Note initiated : 07/06/19 at 7:47 am Service Date, if different from initiated Date: [] Patient: Sadiq Hurley a 84 y/o M admitted on 07/03/19 for shortness of breath. Chief Complaint: [] Interval history: Mr. Hurley is a 84 year old M Presents with shortness of breath fever and chills. She reports he woke up feeling fine on Thursday but that evening he started developing increased shortness of breath. He has a chronic cough or sputum COPD but that had not changed. Thursday state about the same and then Thursday morning felt like his symptoms are much worse. In the ED he was febrile with leukocytosis chest x-ray showed bibasilar infiltrates right and some fibrosis appearance. Elevated lactate and procalcitonin as well. He has left lateral chest wall pleuritic pain with cough and deep breathing. He states this feels like his previous pneumonia. Did receive some breathing treatments in the ED which the report shows he had some improvement. A bit of nausea this morning. He was hypoxic in the 70s and 80s when he came in and now low 90s on several liters of oxygen. Patient has history of recurrent pneumonias. He did see Dr. Martínez after her pneumonia episode in December which can should continue to hold infiltrate in the right lower lobe. In his note he was planning ordered a CT to evaluate for these recurrent pneumonias and persistent infiltrate which was not done. he has received Pneumovax past. 07/04 Had a hard time sleeping because of interruptions. Otherwise no new complaints. Occasional cough. Shortness of breath is much improved from yesterday. Left- sided pleuritic chest pain is better. 07/05 Slept much better last night. Has productive cough occasionally of some bloody mucus. Shortness of breath much better. No left chest wall pain and he feels like he can expand his lungs easier. 07/06 Slept better again last night. Breathing better occasional cough. Was on room air but after getting up to move around had be placed back on 1 L. Video swallow today with speech therapy. And then likely discharge once speech recommendations for diet RN. Review of Systems: denies headache/fever/chills/nausea/vomiting/chest or abdominal pain/diarrhea. Otherwise see above. - Constitutional Vitals: Vital Signs Temp Pulse Resp BP Pulse Ox 98.7 F 70 16 107/57 92 07/06/19 04:33 07/06/19 07:41 07/06/19 07:41 07/06/19 04:33 07/06/19 07:42 Period Temp Pulse Resp BP Sys/Gordon Pulse Ox Last 24 Hr 97.6 F-98.8 F 65-92 12-20 107-135/54-82 90-93 Intake and Output 07/05/19 07/06/19 07/06/19 21:59 05:59 13:59 Intake Total 540 750 Output Total 475 850 Balance 65 -100 Weight 72.802 kg Intake & Output: Intake & Output 07/05/19 07/06/19 07/06/19 21:59 05:59 13:59 Intake Total 540 750 Output Total 475 850 Balance 65 -100 Weight 72.802 kg Intake: Oral 540 750 Output: Void Amount 475 850 Other: Urine Appearance Clear Clear Urine Color Bright Yellow Bright Yellow Urine Odor Normal Normal # Voids 2 Exam: General: Alert, Awake, No acute Distress Eyes/N/T: EOMI, Head/Neck: neck supple, CV: RRR, No murmurs, Pulm: Clear bilaterally no wheezing abd: soft, nontender, +BS x4 Ext: no clubbing/cyanosis/edema Neuro: Alert, no focal deficits, moves all extremities, Skin: warm/dry Medical - PN: Obj Da - Labs CBC & Chem 7: 07/05/19 04:25 07/06/19 04:48 Labs: Abnormal Lab Results 07/05/19 07/05/19 07/04/19 04:25 04:25 04:35 WBC RBC 3.69 L Hgb 11.4 L Hct 34.0 L RDW 14.8 H Plt Count 113 L Gran % Lymph % (Auto) Gran # Lymph # (Auto) [place] # (Auto) Seg Neutrophils % 85 H 84 H Lymphocytes % 5 L Monocytes % (Manual) 13 H Platelet Estimate Decreased A Decreased A VBG Lactic Acid BUN 32 H Glucose 120 H Phosphorus Total Bilirubin Total Protein 5.8 L Albumin 3.0 L Urine Glucose (UA) 07/04/19 07/04/19 07/04/19 04:35 04:35 04:30 WBC RBC 3.93 L Hgb 12.0 L Hct 36.9 L RDW Plt Count 100 L Gran % 87.9 H Lymph % (Auto) 3.6 L Gran # Lymph # (Auto) 0.3 L Rice # (Auto) Seg Neutrophils % Lymphocytes % Monocytes % (Manual) Platelet Estimate VBG Lactic Acid BUN 27 H Glucose 130 H Phosphorus 2.6 L Total Bilirubin Total Protein 5.8 L Albumin 3.0 L Urine Glucose (UA) 50 A 07/03/19 07/03/19 07/03/19 09:56 08:47 08:47 WBC 13.6 H RBC Hgb Hct RDW 14.9 H Plt Count Gran % 89.6 H Lymph % (Auto) 2.4 L Gran # 12.2 H Lymph # (Auto) 0.3 L Rice # (Auto) 1.1 H Seg Neutrophils % Lymphocytes % Monocytes % (Manual) Platelet Estimate VBG Lactic Acid 2.7 H BUN Glucose 122 H Phosphorus Total Bilirubin 1.7 H Total Protein Albumin Urine Glucose (UA) Meds: Medications Acetaminophen (Tylenol) 650 mg PO Q6HP PRN PRN Reason: PAIN/FEVER > 101 Albuterol/Ipratropium (Duoneb) 3 ml NEB Q6HRT [facility] Last Admin: 07/06/19 07:39 Dose: 3 ml Documented by: Ceftriaxone Sodium (Rocephin) 1 gm IV DAILY [facility] Last Admin: 07/05/19 09:53 Dose: 1 gm Documented by: Docusate Sodium (Colace) 100 mg PO BID [facility] Last Admin: 07/05/19 20:17 Dose: 100 mg Documented by: Enoxaparin Sodium (Lovenox) 40 mg SQ DAILY [facility] Last Admin: 07/05/19 09:52 Dose: 40 mg Documented by: Potassium Chloride 40 meq/ (Dextrose) 520 mls @ 130 mls/hr IV UD PRN PRN Reason: Potassium < 3 Magnesium Sulfate (Magnesium Sulfate) 2 gm in 50 mls @ 50 mls/hr IV UD PRN PRN Reason: Magnesium </= 1.6 Lactulose (Cephulac) 10 gm PO DAILYP PRN PRN Reason: Constipation Latanoprost (Xalatan Ophth Drops) 1 gtt OU HS [facility] Last Admin: 07/05/19 21:28 Dose: 1 gtt Documented by: Ondansetron HCl (Zofran) 4 mg IV Q4HP PRN PRN Reason: Nausea And Vomiting Budesonide/Formoterol Fumarate [Symbicort 80-4.5 Mcg] Inhaler 1 dose INH BID [facility] Last Admin: 07/05/19 21:28 Dose: 1 dose Documented by: Polyethylene Glycol (Miralax) 17 gm PO DAILYP PRN PRN Reason: Constipation Potassium Chloride (Kdur) 40 meq PO UD PRN PRN Reason: Potssium is 3-3.5 Potassium Chloride (Kdur) 40 meq PO UD PRN PRN Reason: Potassium < 3 Prednisone (Prednisone) 40 mg PO QAMCC [facility] Last Admin: 07/05/19 09:51 Dose: 40 mg Documented by: Senna (Senokot) 2 tab PO HSP PRN PRN Reason: Constipation Sodium Chloride (Saline Flush) 10 ml IV Q8 [facility] Last Admin: 07/05/19 20:18 Dose: 10 ml Documented by: Trazodone HCl (Desyrel) 50 mg PO HSP PRN PRN Reason: Insomnia Last Admin: 07/05/19 21:39 Dose: 50 mg Documented by: Medical - PN: A/P - Time Spent With Patient Total time spent is greater than 50% in coordination of care (as documented) at patient's floor/unit and/or counseling patient: - Narrative A/P Narrative: A: *Acute hypoxic respiratory failure: 2/2 pneumonia -on 1L NC with sats mid 90's *CAP (frequent h/o PNA): -urine strep neg -CT chest concerning for aspiration -PCT improving *Sepsis: resolved -leukocytosis/lactic acidosis resolved *volume depletion: improved *COPD (not on home oxygen): *h/o of grade I diastolic LV dysfxn: *Lung nodules 9mm and 5mm P: -rocephing/azithro, pending BC/SC -nebs, IS/Acapella -pt/ot -ST eval with video swallow today -echo no thrombus right atrium as was suspicious on CT -f/u CT chest outpt for lung nodules -ppx: lovenox DNR Medical - PN: Qual - VTE Deep Vein Thrombosis/Pulmonary Embolism Present on Admission: No
--- NOTE | 2019-07-06 07:52 | Discharge Summary ---
Medical - DS: Prov Patient information: Note initiated : 07/06/19 at 7:50 am Service Date, if different from initiated Date: [] Patient: Sadiq Hurley 84 y/o M admitted on 07/03/19 for shortness of breath. Chief Complaint: [] Date of admission: 07/03/19 13:24 Discharge date: 07/06/19 Primary care physician: Brennan Kelly DO Consults: 07/03/19 Consult to Physician [CONS] Stat Comment: Pneumonia Consulting Provider: Yony Siegel Reason For Exam: Physician to Consult Medical - DS: Meds - Discharge Medications Prescriptions: metroNIDAZOLE [Flagyl] 500 mg PO TID #9 tab Transmission Status: Pending to [facility] [id number] Levofloxacin [Levaquin] 750 mg PO DAILY #3 tab Transmission Status: Pending to [facility] [id number] Active and Home Medications: Home Medications latanoprost 0.005 % eye drops 1 drp OPHTHALMIC QHS ml 08/09/15 [History Confirmed 07/03/19 Last Taken 07/02/19 22:00] vit C-vit I-[id number] ox-lutein 226 mg-200 unit-5 mg-0.8 mg capsule 1 cap PO BID cap 08/09/15 [History Confirmed 07/03/19 Last Taken 07/02/19 09:30] budesonide-formoterol HFA 80 mcg-4.5 mcg/actuation aerosol inhaler 1 inh INHALATION BID #6.9 g 05/19/18 [Rx Confirmed 07/03/19 Last Taken 07/02/19 22:00] albuterol sulfate 90 mcg/actuation aerosol inhaler 2 puff INHALATION Q6H PRN #18 g 03/08/19 [Rx Confirmed 07/03/19 Last Taken 07/02/19 22:00] trazodone 50 mg tablet 50 mg PO QHS PRN #90 tab 03/08/19 [Rx Confirmed 07/03/19 Last Taken 07/02/19 22:00] Magnesium Oxide [Mag-Oxide Magnesium] 500 mg PO QDAY 07/03/19 [History Confirmed 07/03/19 Last Taken 07/02/19 09:30] Medical - DS: Hosp Hospital Course: Mr. Hurley is a 84 year old M Presents with shortness of breath fever and chills. She reports he woke up feeling fine on Thursday but that evening he started developing increased shortness of breath. He has a chronic cough or sputum COPD but that had not changed. Thursday state about the same and then Thursday morning felt like his symptoms are much worse. In the ED he was febrile with leukocytosis chest x-ray showed bibasilar infiltrates right and some fibrosis appearance. Elevated lactate and procalcitonin as well. He has left lateral chest wall pleuritic pain with cough and deep breathing. He states this feels like his previous pneumonia. Did receive some breathing treatments in the ED which the report shows he had some improvement. A bit of nausea this morning. He was hypoxic in the 70s and 80s when he came in and now low 90s on several liters of oxygen. Patient has history of recurrent pneumonias. He did see Dr. Martínez after her pneumonia episode in December which can should continue to hold infiltrate in the right lower lobe. In his note he was planning ordered a CT to evaluate for these recurrent pneumonias and persistent infiltrate which was not done. he has received Pneumovax past. 07/04 Had a hard time sleeping because of interruptions. Otherwise no new complaints. Occasional cough. Shortness of breath is much improved from yesterday. Left- sided pleuritic chest pain is better. 07/05 Slept much better last night. Has productive cough occasionally of some bloody mucus. Shortness of breath much better. No left chest wall pain and he feels like he can expand his lungs easier. 07/06 Slept better again last night. Breathing better occasional cough. Was on room air but after getting up to move around had be placed back on 1 L. Video swallow today with speech therapy. And then likely discharge once speech recommendations for diet RN. A: *Acute hypoxic respiratory failure: 2/2 pneumonia -on 1L NC with sats mid 90's *CAP (frequent h/o PNA): -urine strep neg -CT chest concerning for aspiration -PCT improving *Sepsis: resolved -leukocytosis/lactic acidosis resolved *volume depletion: improved *COPD (not on home oxygen): *h/o of grade I diastolic LV dysfxn: *Lung nodules 9mm and 5mm Discharge diagnosis: Pneumonia aspiration likely acute hypoxic respiratory failure sepsis Secondary discharge diagnosis: Volume depletion COPD incidental lung nodules noted - Time Spent with Patient Total time spent providing and/or coordinating discharge services: Greater than 30 minutes Medical - DS: Exam - Constitutional Vitals: Vital Signs Temp Pulse Pulse Pulse Resp BP BP 07/06/19 07:42 07/06/19 07:41 70 16 07/06/19 04:33 98.7 F 65 16 107/57 07/06/19 00:43 82 12 07/06/19 00:34 98.1 F 69 18 120/59 07/05/19 19:35 82 18 07/05/19 19:20 97.8 F 77 20 135/82 07/05/19 17:09 07/05/19 16:00 98.8 F 79 18 127/61 07/05/19 14:07 92 H 16 07/05/19 11:30 97.7 F 74 16 07/05/19 08:07 83 16 07/05/19 08:03 07/05/19 08:02 07/05/19 08:00 97.6 F 75 16 BP Pulse Ox 07/06/19 07:42 92 07/06/19 07:41 07/06/19 04:33 91 07/06/19 00:43 07/06/19 00:34 93 07/05/19 19:35 07/05/19 19:20 91 07/05/19 17:09 91 07/05/19 16:00 93 07/05/19 14:07 07/05/19 11:30 108/54 93 07/05/19 08:07 07/05/19 08:03 91 07/05/19 08:02 91 07/05/19 08:00 118/58 90 Intake and Output 07/05/19 07/06/19 07/06/19 21:59 05:59 13:59 Intake Total 540 750 Output Total 475 850 Balance 65 -100 Intake: Oral 540 750 Output: Void Amount 475 850 Other: Urine Appearance Clear Clear Urine Color Bright Yellow Bright Yellow Urine Odor Normal Normal # Voids 2 Weight 72.802 kg Medical - DS: Data Labs on day of discharge: Labs from last 24 hours 07/06/19 07/06/19 07/05/19 04:48 04:48 04:25 Total Counted 100 Seg Neutrophils % 85 H Band Neutrophils % 6 Lymphocytes % 5 L Monocytes % (Manual) 4 Platelet Estimate Decreased A RBC Morphology Normal Sodium 138 Potassium 4.1 Chloride 102 Carbon Dioxide 27 Anion Gap 9.0 BUN 23 Creatinine 1.0 GFR Calculation 69 Glucose 102 Calcium 8.9 Procalcitonin 1.97 Preliminary micro results at discharge 07/03/19 18:04 Sputum Culture - Preliminary Sputum - Expectorated 07/03/19 09:23 Blood Culture - Preliminary Blood 07/03/19 09:28 Blood Culture - Preliminary Blood Medical - DS: A/P - Patient/Caregiver Discharge Instructions Activity: increase activity as tolerated Diet: Dysphagia Level 5 Minced & Moist Foods (Adjust per speech therapy) Additional Instructions: Follow-up with PCP for follow-up outpatient chest CT for incidental lung nodules Prescriptions: metroNIDAZOLE [Flagyl] 500 mg PO TID #9 tab Transmission Status: Pending to [facility] [id number] Levofloxacin [Levaquin] 750 mg PO DAILY #3 tab Transmission Status: Pending to [facility] [id number] - Follow up Plan Follow up with: Brennan Kelly DO [Primary Care Provider] - Disposition: Home, Self-Care Prognosis: Good Rehab Potential: Fair Overall status at discharge: patient is progressing back to baseline Medical - DS: Qual - VTE Deep Vein Thrombosis/Pulmonary Embolism Present on Admission: No
[2019-07-06] MEDS: predniSONE 20 MG TABLET PO SCH (08:17)
[2019-07-06] MEDS: 0.9 % SODIUM CHLORIDE 10 ML SYRINGE IV SCH ×3 (08:17→21:26)
[2019-07-06] MEDS: ENOXAPARIN 40 MG/0.4 ML SYRINGE SQ SCH (08:17)
[2019-07-06] MEDS: DOCUSATE SODIUM 100 MG CAPSULE PO SCH ×2 (08:18→21:25)
[2019-07-06] MEDS: cefTRIAXone 1 GM VIAL IV SCH (08:19)
--- NOTE | 2019-07-06 18:45 | XRay Report ---
CLINICAL INFORMATION: aspiration COMPARISON: None. TECHNIQUE: Thin contrast barium was administered by speech pathology and rapid imaging of the oropharynx, larynx and cervical esophagus was performed during deglutition. Total fluoroscopy time 41 seconds. FINDINGS: Please see speech pathology report. There was trace penetration of barium into the laryngeal vestibule due to incomplete epiglottis closure. The barium did not penetrate vocal cords and trachea. No cough reflex was elicited. IMPRESSION: Trace aspiration due to incomplete epiglottic closure Interpreted and Authenticated by: Brennan Small 07/06/19
[2019-07-06] MEDS: LATANOPROST OPHTH DROPS 2.5ML BOTTLE OU SCH (21:26)
[2019-07-06] MEDS: traZODone HCL 50 MG TABLET PO PRN (21:26)
[2019-07-07] MEDS: IPRATROPIUM/ALBUTEROL 3 ML AMPUL.NEB NEB SCH ×2 (01:13→09:05)
[2019-07-07] MEDS: 0.9 % SODIUM CHLORIDE 10 ML SYRINGE IV SCH (08:55)
[2019-07-07] MEDS: cefTRIAXone 1 GM VIAL IV SCH (08:55)
[2019-07-07] MEDS: ENOXAPARIN 40 MG/0.4 ML SYRINGE SQ SCH (08:55)
[2019-07-07] MEDS: DOCUSATE SODIUM 100 MG CAPSULE PO SCH (08:56)
[2019-07-07] MEDS: predniSONE 20 MG TABLET PO SCH (08:56)
--- NOTE | 2019-07-07 10:01 | Discharge Summary ---
Medical - DS: Prov Patient information: Note initiated : 07/07/19 at 9:58 am Service Date, if different from initiated Date: [] Patient: Sadiq Hurley 84 y/o M admitted on 07/03/19 for shortness of breath. Chief Complaint: [] Date of admission: 07/03/19 13:24 Discharge date: 07/07/19 Primary care physician: Brennan Kelly DO Consults: 07/03/19 Consult to Physician [CONS] Stat Comment: Pneumonia Consulting Provider: Yony Siegel Reason For Exam: Physician to Consult Medical - DS: Meds - Discharge Medications Prescriptions: metroNIDAZOLE [Flagyl] 500 mg PO TID #9 tab Transmission Status: Received by [facility] [id number] Levofloxacin [Levaquin] 750 mg PO DAILY #3 tab Transmission Status: Received by [facility] [id number] Active and Home Medications: Home Medications latanoprost 0.005 % eye drops 1 drp OPHTHALMIC QHS ml 08/09/15 [History Confirmed 07/03/19 Last Taken 07/02/19 22:00] vit C-vit C-puceda-ewfv ox-lutein 226 mg-200 unit-5 mg-0.8 mg capsule 1 cap PO BID cap 08/09/15 [History Confirmed 07/03/19 Last Taken 07/02/19 09:30] budesonide-formoterol HFA 80 mcg-4.5 mcg/actuation aerosol inhaler 1 inh INHALATION BID #6.9 g 05/19/18 [Rx Confirmed 07/03/19 Last Taken 07/02/19 22:00] albuterol sulfate 90 mcg/actuation aerosol inhaler 2 puff INHALATION Q6H PRN #18 g 03/08/19 [Rx Confirmed 07/03/19 Last Taken 07/02/19 22:00] trazodone 50 mg tablet 50 mg PO QHS PRN #90 tab 03/08/19 [Rx Confirmed 07/03/19 Last Taken 07/02/19 22:00] Magnesium Oxide [Mag-Oxide Magnesium] 500 mg PO QDAY 07/03/19 [History Confirmed 07/03/19 Last Taken 07/02/19 09:30] Levofloxacin [Levaquin] 750 mg PO DAILY #3 tab 07/06/19 [Rx Last Taken Unknown] metroNIDAZOLE [Flagyl] 500 mg PO TID #9 tab 07/06/19 [Rx Last Taken Unknown] Medical - DS: Hosp Hospital Course: Discharge diagnosis *Acute hypoxic respiratory failure: 2/2 pneumonia -Patient discharging on home oxygen after he continued to need 2 to 4 L of oxygen during exertion. Continue Levaquin/Flagyl for underlying pneumonia *CAP (frequent h/o PNA): -Continue Levaquin/Flagyl for additional 3 days *Sepsis: resolved -leukocytosis/lactic acidosis resolved *volume depletion: improved *COPD (not on home oxygen): *h/o of grade I diastolic LV dysfxn: *Lung nodules 9mm and 5mm Brief hospital course Mr. Hurley is a 84 year old M Presents with shortness of breath fever and chills. She reports he woke up feeling fine on Thursday but that evening he started developing increased shortness of breath. He has a chronic cough or sputum COPD but that had not changed. Thursday state about the same and then Thursday morning felt like his symptoms are much worse. In the ED he was febrile with leukocytosis chest x-ray showed bibasilar infiltrates right and some fibrosis appearance. Elevated lactate and procalcitonin as well. He has left lateral chest wall pleuritic pain with cough and deep breathing. He states this feels like his previous pneumonia. Did receive some breathing treatments in the ED which the report shows he had some improvement. A bit of nausea this morning. He was hypoxic in the 70s and 80s when he came in and now low 90s on several liters of oxygen. Patient has history of recurrent pneumonias. He did see Dr. Martínez after her pneumonia episode in December which can should continue to hold infiltrate in the right lower lobe. In his note he was planning ordered a CT to evaluate for these recurrent pneumonias and persistent infiltrate which was not done. he has received Pneumovax past. 07/04 Had a hard time sleeping because of interruptions. Otherwise no new complaints. Occasional cough. Shortness of breath is much improved from yesterday. Left- sided pleuritic chest pain is better. 07/05 Slept much better last night. Has productive cough occasionally of some bloody mucus. Shortness of breath much better. No left chest wall pain and he feels like he can expand his lungs easier. 07/06 Slept better again last night. Breathing better occasional cough. Was on room air but after getting up to move around had be placed back on 1 L. Video swallow today with speech therapy. And then likely discharge once speech recommendations for diet RN. 07/07-exercise oximetry reveals significant desaturation to mid 70s requiring up to 4 L of oxygen which improves over time. Patient will be discharged on home oxygen ranging between 2 to 4 L as needed for underlying COPD. Continue antibiotic coverage for additional 3 days, aspiration precautions, diet as per ST recommendations as below. P: Compensatory strategies were provided to patient and his . Patient is to sit completely upright for intake, take single sips of thin liquids and complete a throat clear and reswallow to clear valleculae. Patient is encouraged to utilize chin tuck or a straw to ensure head extension does not occur during intake. Recommend that patient try natural nectar liquids, such as tomato juice, apricot nectars etc. Patient may also purchase thickened liquid powder at drug store and add a small amount to liquids as needed. Will also recommend home health ST services to provide additional training to ensure carry over of recommendations. Discharge diagnosis: . - Time Spent with Patient Total time spent providing and/or coordinating discharge services: Greater than 30 minutes Medical - DS: Exam - Constitutional Vitals: Vital Signs Temp Pulse Pulse Pulse Resp BP BP 07/07/19 09:08 88 16 07/07/19 08:00 66 77 20 07/07/19 07:32 97.7 F 66 20 139/80 07/07/19 04:05 98.1 F 77 20 108/65 07/07/19 02:00 07/07/19 01:25 07/07/19 00:01 98.1 F 68 20 106/66 07/06/19 19:40 98.1 F 70 20 140/73 07/06/19 18:30 72 18 07/06/19 18:15 66 07/06/19 16:00 97.5 F 68 18 122/73 07/06/19 12:00 97.5 F 74 18 132/76 Pulse Ox 07/07/19 09:08 07/07/19 08:00 93 07/07/19 07:32 96 07/07/19 04:05 98 07/07/19 02:00 95 07/07/19 01:25 91 07/07/19 00:01 94 07/06/19 19:40 92 07/06/19 18:30 92 07/06/19 18:15 91 07/06/19 16:00 94 07/06/19 12:00 94 Intake and Output 07/06/19 07/07/19 07/07/19 21:59 05:59 13:59 Intake Total 1340 0 Output Total 1050 250 400 Balance 290 -250 -400 Intake: Oral 1340 0 Output: Void Amount 1050 250 400 Other: Meal Dinner Percent of Meal Consumed 100% Urine Appearance Clear Clear Clear Urine Color Bright Yellow Bright Yellow Bright Yellow Urine Odor Normal Normal Stool Size Large Stool Color Brown Stool Consistency Soft Weight 163 lb 8 oz Medical - DS: Data Labs on day of discharge: Preliminary micro results at discharge 07/03/19 18:04 Sputum Culture - Preliminary Sputum - Expectorated Streptococcus pneumoniae 07/03/19 09:23 Blood Culture - Preliminary Blood 07/03/19 09:28 Blood Culture - Preliminary Blood Medical - DS: A/P - Patient/Caregiver Discharge Instructions Activity: increase activity as tolerated, other (Home oxygen between 2 to 4 L as needed to maintain sats around 88-90) Diet: Dysphagia Level 5 Minced & Moist Foods (Adjust per speech therapy) Additional Instructions: Follow-up with PCP in 5 to 7 days for follow-up outpatient chest CT for incidental lung nodules Continue antibiotics for additional 3 days s I recommend S PCP to check, CBC BMP UA as a posthospital follow-up Oxygen between 2 to 4 L to keep sats around 88% Continue aggressive bowel regimen to prevent constipation Continue fall precautions Recommended outpatient PT OT/ST eval and treatments. All meals on chair sitting upright at 90 degrees to prevent aspiration. Continue diet as per ST recommendations as below Return to ER if worsening fever chills shortness of breath, diarrhea, bleeding Review risk and side effect profile of medications including antibiotics. Side effect may include mild to severe reaction including rash, diarrhea, cdiff and even which can be prevented by close follow-up with PCP and monitoring for side effects Continue diet and activity as advised Discussed importance of medication adherence Please review medication list with patient prior to discharge Please schedule follow-up with PCP/Providers prior to discharge and provide printouts Diet per ST recommendations as below : Compensatory strategies were provided to patient and his . Patient is to sit completely upright for intake, take single sips of thin liquids and complete a throat clear and reswallow to clear valleculae. Patient is encouraged to utilize chin tuck or a straw to ensure head extension does not occur during intake. Recommend that patient try natural nectar liquids, such as tomato juice, apricot nectars etc. Patient may also purchase thickened liquid powder at drug store and add a small amount to liquids as needed. Will also recommend home health ST services to provide additional training to ensure carry over of recommendations. Prescriptions: metroNIDAZOLE [Flagyl] 500 mg PO TID #9 tab Transmission Status: Received by [facility] [id number] Levofloxacin [Levaquin] 750 mg PO DAILY #3 tab Transmission Status: Received by [facility] [id number] - Follow up Plan Follow up with: Brennan Kelly DO [Primary Care Provider] - Disposition: Home, Self-Care Prognosis: Good Rehab Potential: Fair I certify that the patient requires SNF services: No Overall status at discharge: patient is progressing back to baseline Medical - DS: Qual - VTE Deep Vein Thrombosis/Pulmonary Embolism Present on Admission: No
== END 2019-07-07 12:55 | disposition home or self-care (01) | DRG 177 ==
LOC: ED 08:34 → MEDSUR 13:24
PROVIDERS: ADMIT Internal Medicine; ATTEND Internal Medicine

== ENCOUNTER 2022-08-28 11:38 | Inpatient (IN) ==
[2022-08-28] MEDS ORDERED: IPRATROPIUM/ALBUTEROL 3 ML AMPUL.NEB NEB ONE (12:03)
[2022-08-28] MEDS ORDERED: 0.9 % SODIUM CHLORIDE 500 ML IV ONE (12:03)
[2022-08-28 12:25] LABS: POC Calcium, Ionized 1.08 (1.16-1.32); POC Creatinine 1.1 (0.6-1.2); POC Potassium 4.6 (3.3-5.1)
--- NOTE | 2022-08-28 13:05 | XRay Report ---
CLINICAL INFORMATION: Cough, shortness of breath and hypoxia COMPARISON: Chest CT 06/11/2020 and plain films 02/03/2020 TECHNIQUE: PA and lateral views were obtained. FINDINGS: The heart size, mediastinum and pulmonary vessels are unremarkable. Moderate centrilobular emphysema is known from plain film. There is scattered fibrosis throughout both lungs. Moderate vague infiltrate has developed in the right lower lobe. A few calcified granulomas in the perihilar region seen as before.. There are no effusions. The bones and soft tissues are within normal limits. IMPRESSION: Moderate centrilobular emphysema. New moderate vague infiltrate right lower lobe Interpreted and Authenticated by: Brennan Small 08/28/22
--- NOTE | 2022-08-28 13:43 | Emergency Department Note ---
SOB HPI General Chief Complaint: Shortness of Breath/Dyspnea Stated Complaint: lung issues Time Seen by Provider: 08/28/22 12:01 Source: patient Mode of arrival: ambulatory Limitations: no limitations History of Present Illness HPI Narrative: Sadiq Summers is an 87-year-old male who presents to the emergency department complaining of shortness of breath. He reports he began having cold symptoms Thursday afternoon, felt better yesterday, and then awoke this morning feeling "pretty lousy." He reports cough and congestion, with some production of mucus. He denies hemoptysis. Patient reports that he is always short of breath given his history of COPD, however this morning his shortness of breath was consid erably worse than his baseline, starting at about 9 AM. He reports he wears 2 L/min of oxygen at night, and that his daytime pulse ox is roughly 94 to 95% without oxygen. He reports right-sided chest pain with deep inhalation. He reports feeling feverish this afternoon, but denies measured fevers at home. He denies severe headache, visual disturbances, dizziness, syncope. Just prior to arrival, he states he vomited, however he was not feeling nauseated and did not gag while coughing. Denies recent trauma and confinement. MD Complaint: shortness of breath, cough and pain with inspiration Related Data Home oxygen amount: 2 liters (At night) Home Medications Medication Instructions Recorded Confirmed latanoprost 0.005 % eye drops 1 drp ophthalmic (eye) QHS 08/09/15 08/14/22 vit C 226 mg-vit E 90 mg-copper 1 cap PO BID 08/09/15 08/14/22 0.8 mg-zinc oxide-lutein 5 mg capsule magnesium oxide 500 mg PO QDAY 07/03/19 08/14/22 multivitamin with iron (Daily 1 tab PO QDAY 05/22/20 08/14/22 Multiple Vitamins with Iron tablet) cholecalciferol (vitamin D3) 100 100 mcg PO QDAY 12/14/20 08/14/22 mcg (4,000 unit) capsule Previous Rx's Medication Instructions Recorded albuterol sulfate 90 mcg/actuation 2 puff inhalation Q6H PRN unknown 11/03/19 aerosol inhaler #18 grams budesonide-formoterol HFA 80 1 inh inhalation BID #6.9 grams 03/31/22 mcg-4.5 mcg/actuation aerosol inhaler trazodone 50 mg tablet 25 mg PO QHS PRN insomnia #1 tab 07/03/22 Spiriva Respimat 2.5 mcg/actuation 2 puff inhalation Q24H #4 grams 07/30/22 solution for inhalation (tiotropium bromide) Allergies Allergy/AdvReac Type Severity Reaction Status Date / Time Penicillins Allergy Severe Hives, Verified 08/14/22 10:08 Swelling, difficulty breathing. Review of Systems ROS ROS Narrative: A comprehensive review of systems is completed and found to be negative, except as per HPI PFSH Narrative Patient History Narrative: Narrative: Medical/Surgical/Family History All Active Problems (Updated 08/28/22 @ 18:03 by Lexis Coates PA-C) Community acquired pneumonia (Acute) Colitis (Acute) Dizziness (Acute) Rhinorrhea (Acute) Nocturnal hypoxemia (Chronic) Pulmonary fibrosis (Chronic) Right lower lobe pulmonary nodule (Chronic) Severe chronic obstructive pulmonary disease (Chronic) PVC (premature ventricular contraction) (Chronic) Dehydration (Acute) Dyspnea (Acute) Arrhythmia (Chronic) Pain of right thumb (Chronic) Abdominal pain (Chronic) Urinary incontinence (Chronic) Tachycardia (Chronic) Paresthesia (Chronic) Osteoarthritis (Chronic) Onychomycosis (Chronic) Macular degeneration (Chronic) Irritable bowel syndrome (Chronic) Insomnia (Chronic 12/06/13) Inguinal pain (Chronic 08/26/13) Hypertrophic pyloric stenosis (Chronic) Glaucoma (Chronic 08/26/13) Gastroesophageal reflux (Chronic) Fatigue (Chronic) Dysuria (Chronic) Diverticulosis of colon (Chronic) Dermatitis (Chronic) Colon adenoma (Chronic) COPD (chronic obstructive pulmonary disease) (Chronic) Bilateral cataracts (Chronic) Anxiety (Chronic 12/06/13) Medical History Acute exacerbation of chronic obstructive airways disease Acute exacerbation of chronic obstructive airways disease Resolved. Now on home O2. Anxiety (12/06/13) Family issues Aspiration into airway Bilateral cataracts Bronchitis Bronchitis with bronchospasm Resolved at present Colon adenoma 07/17 Community acquired pneumonia 07/03/2019 bilateral lower and right middle lobes. Possibly aspiration pneumonia. Positive for pneumococcus. Patient finished Levaquin and Flagyl. Pneumonia has resolved. Follow-up CBC, CMP, and UA today. COPD (chronic obstructive pulmonary disease) Managed by pulmonology. Continue Symbicort and nocturnal O2 Albuterol as needed Dermatitis 2011 Monilial Diverticulitis Diverticulitis of intestine follow-up Diverticulosis of colon Dysuria Fatigue Gastroesophageal reflux Glaucoma (08/26/13) Hypertrophic pyloric stenosis Inguinal pain (08/26/13) Insomnia (12/06/13) Irritable bowel syndrome Macular degeneration Nocturnal hypoxemia Onychomycosis Osteoarthritis Paresthesia intermittent, right foot Pneumonia Prostate cancer 2000 Pulmonary fibrosis Right lower lobe pulmonary nodule x2. Follow-up CT in 6 months Sepsis Resolved. Severe chronic obstructive pulmonary disease Oxygen dependent. Continue Symbicort twice daily and albuterol as needed. Refer to pulmonology. 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, uncomplicated diverticulitis Hx of detached retina repair Right Hx of elbow surgery Left Hx of esophagogastroduodenoscopy 08/17 "ok" Hx of inguinal hernia repair 11/08/1996-Right Hx of radical prostatectomy 2001 Family History none listed Diabetes mellitus Cardiac disease father Coronary artery disease Irritable bowel syndrome Acute myocardial infarction brother Irritable bowel syndrome Social History Smoking Status: Former smoker Alcohol Intake Frequency: holiday/special occasion only Substance Use: does not use Exam Narrative Narrative: General: Alert, pleasant, conversant, NAD HEENT: Mask in place per COVID protocol, EOMI, PERRL Chest/respirations: Symmetric chest wall expansion, inspiratory and expiratory wheezes, + rhonchi upon exhalation, rapid respirations with decreased tidal volume and respiratory effort, speaks in short paragraphs CV: RRR/no MRG, cap refill less than 2 seconds Abdomen: NABs, soft, NT/ND Extremities: MAEW, no edema. No calf tenderness Skin: Normal warm and dry General Limitations: no limitations Course Reevaluation(s) Reevaluation #1: pt feels his breathing has improved, though fatigue and malaise persist Time: 13:45 Reevaluation #2: Patient reports the only antibiotic to which he has had a reaction is penicillin and anything ending in "-cillin." The patient states he has not had a reaction to an any other type of antibiotic. The hospitalist is called to request admission for this patient. Time: 14:32 Reevaluation #3: Patient awaiting arrival of hospitalist for admission. He reports feeling significantly better, though he agrees with decision for admission. Patient feels as though he would like to eat. Time: 17:00 Vital Signs Vital signs: Vital Signs Temperature 103.3 F H 08/28/22 11:40 Pulse Rate 95 H 08/28/22 11:40 Respiratory Rate 22 08/28/22 11:40 Blood Pressure 136/75 08/28/22 11:40 Pulse Oximetry (%) 88 L 08/28/22 11:40 Oxygen Delivery Method 08/28/22 11:40 Temperature 99.1 F H 08/28/22 17:50 Pulse Rate 87 08/28/22 17:50 Respiratory Rate 18 08/28/22 17:50 Blood Pressure 82/65 08/28/22 17:50 Pulse Oximetry (%) 99 08/28/22 17:50 Oxygen Delivery Method 08/28/22 17:50 Oxygen Flow Rate (L/min) 3 08/28/22 17:50 MDM MDM Narrative Medical decision making narrative: Sadiq Summers is an 87-year-old male who presents to the emergency department complaining of shortness of breath since Thursday. He reports this is dramatically worse today since this morning. He reports this is worse than his baseline due to COPD. The patient reports a productive cough (mucus, no blood). Upon arrival, the patient is visibly short of breath, speaking in truncated sentences, and is satting 88% on room air. He is febrile at 103.3F. He states his normal is approximately 94 to 95% during the day. White blood cell count is not elevated, though there is a positive left shift at 83.8%. Chest x-ray shows infiltrates at the right lower lobe as well as changes consistent with the patient's COPD. ABG demonstrates a pH of 7.47, PCO2 of 63, P HCO3 of 27.7, total CO2 of 29, base excess 4.0 lactic acid is 0.4, hemoglobin oxygen saturation is 93. Blood glucose is 116. Urine is unremarkable. Troponin is negative. Procalcitonin is outstanding. Testing for influenza A, B, and COVID are negative. Fever improves following Tylenol to 99.1F. Respiratory effort decreases with administration of DuoNeb. Given x-ray findings, the patient is started on Rocephin and azithromycin as initial treatment for community-acquired pneumonia. Admission is sought for this 87-year-old male, a decision with which he agrees. The patient is excepted by Dr. Johnson for admission. Lab Data Result diagrams: 08/28/22 12:07 08/28/22 12:18 Labs: Lab Results 08/28/22 08/28/22 08/28/22 Range/Units 12:07 12:18 12:18 WBC 8.1 (4.5-11.0) K/mcL RBC 3.90 L (4.63-6.08) M/mcL Hgb 11.6 L (13.7-17.5) g/dL Hct 37.3 L (40.1-51.0) % POC Hct (41-55) MCV 95.6 (80.0-100.0) fL MCH 29.7 (26.0-34.0) pg MCHC 31.1 (31.0-36.0) g/dL RDW 14.0 (11.5-14.5) % Plt Count 148 (140-440) K/mcL MPV 11.6 (8.8-12.5) fL Immature Gran % (Auto) 0.4 (0.0-0.5) % Neut % (Auto) 83.8 H (38.0-78.0) % Lymph % (Auto) 5.6 L (15.5-49.0) % [place] % (Auto) 9.6 (1.0-12.0) % Eos % (Auto) 0.2 (0.0-7.0) % Baso % (Auto) 0.4 (0.0-2.0) % Lymph # (Auto) 0.45 L (1.50-4.80) K/mcL [place] # (Auto) 0.78 (0.10-0.90) K/mcL Eos # (Auto) 0.02 (0.00-0.70) K/mcL Baso # (Auto) 0.03 (0.00-0.30) K/mcL Immature Gran # 0.03 (0.00-0.05) K/mcl Absolute Neutrophils 6.79 (1.80-8.00) K/mcL POC pH (7.35-7.45) POC pCO2 (35-45) mmHg POC pO2 (80-100) mmHg POC HCO3 (22-26) mmHg POC Total CO2 (23-27) mmHg POC ABG Base Excess (-2-3) ABG Lactic Acid (0.5-2) VBG Lactic Acid 1.0 (0.5-2.0) mmol/L Hgb O2 Saturation (94-97) POC Sodium (133-145) Sodium 140 (133-145) mmol/L POC Potassium (3.3-5.1) Potassium 4.7 (3.3-5.1) mmol/L POC Chloride (96-108) Chloride 102 (96-108) mmol/L Carbon Dioxide 30 (22-30) mmol/L Anion Gap 8.0 (8.0-16.0) POC BUN (6-20) BUN 15 (8-23) mg/dL Creatinine 1.0 (0.7-1.2) mg/dL POC Creatinine (0.6-1.2) GFR Calculation 67 Glucose 112 H (70-105) mg/dL POC Glucose (70-105) Calcium 8.8 (8.6-10.4) mg/dL POC WB Ioniz Calcium (1.16-1.32) Total Bilirubin 0.5 (0.1-1.0) mg/dL AST 29 (<40) U/L ALT 13 (<40) U/L Alkaline Phosphatase 99 (39-117) U/L Total Protein 6.3 (5.9-8.4) gm/dL Albumin 3.7 (3.2-5.2) gm/dL Globulin 2.6 (2.2-3.7) gm/dL Albumin/Globulin Ratio 1.4 (1.0-2.3) Procalcitonin 0.09 (<0.10) ng/mL Urine Color Urine Appearance (Clear) Urine pH (5.0-9.0) Ur Specific [place] (1.000-1.035) Urine Protein (Negative) mg/dL Urine Glucose (UA) (Negative) mg/dL Urine Ketones (Negative) mg/dL Urine Occult Blood (Negative) brenna/mcL Urine Nitrate (Negative) Urine Bilirubin (Negative) mg/dL Urine Urobilinogen mg/dL Ur Leukocyte Esterase (Negative) /uL Ur Culture Indicated? POC Troponin I (0.00-0.08) 08/28/22 08/28/22 08/28/22 Range/Units 12:22 12:22 13:18 WBC (4.5-11.0) K/mcL RBC (4.63-6.08) M/mcL Hgb (13.7-17.5) g/dL Hct (40.1-51.0) % POC Hct 36.0 L (41-55) MCV (80.0-100.0) fL MCH (26.0-34.0) pg MCHC (31.0-36.0) g/dL RDW (11.5-14.5) % Plt Count (140-440) K/mcL MPV (8.8-12.5) fL Immature Gran % (Auto) (0.0-0.5) % Neut % (Auto) (38.0-78.0) % Lymph % (Auto) (15.5-49.0) % [place] % (Auto) (1.0-12.0) % Eos % (Auto) (0.0-7.0) % Baso % (Auto) (0.0-2.0) % Lymph # (Auto) (1.50-4.80) K/mcL [place] # (Auto) (0.10-0.90) K/mcL Eos # (Auto) (0.00-0.70) K/mcL Baso # (Auto) (0.00-0.30) K/mcL Immature Gran # (0.00-0.05) K/mcl Absolute Neutrophils (1.80-8.00) K/mcL POC pH 7.47 H (7.35-7.45) POC pCO2 38.4 (35-45) mmHg POC pO2 63 L (80-100) mmHg POC HCO3 27.7 H (22-26) mmHg POC Total CO2 32.0 H 29.0 H (23-27) mmHg POC ABG Base Excess 4.0 H (-2-3) ABG Lactic Acid 0.4 L (0.5-2) VBG Lactic Acid (0.5-2.0) mmol/L Hgb O2 Saturation 93.0 L (94-97) POC Sodium 139 (133-145) Sodium (133-145) mmol/L POC Potassium 4.6 (3.3-5.1) Potassium (3.3-5.1) mmol/L POC Chloride 100 (96-108) Chloride (96-108) mmol/L Carbon Dioxide (22-30) mmol/L Anion Gap (8.0-16.0) POC BUN 20 (6-20) BUN (8-23) mg/dL Creatinine (0.7-1.2) mg/dL POC Creatinine 1.1 (0.6-1.2) GFR Calculation Glucose (70-105) mg/dL POC Glucose 116 H (70-105) Calcium (8.6-10.4) mg/dL POC WB Ioniz Calcium 1.08 L (1.16-1.32) Total Bilirubin (0.1-1.0) mg/dL AST (<40) U/L ALT (<40) U/L Alkaline Phosphatase (39-117) U/L Total Protein (5.9-8.4) gm/dL Albumin (3.2-5.2) gm/dL Globulin (2.2-3.7) gm/dL Albumin/Globulin Ratio (1.0-2.3) Procalcitonin (<0.10) ng/mL Urine Color Urine Appearance (Clear) Urine pH (5.0-9.0) Ur Specific [place] (1.000-1.035) Urine Protein (Negative) mg/dL Urine Glucose (UA) (Negative) mg/dL Urine Ketones (Negative) mg/dL Urine Occult Blood (Negative) brenna/mcL Urine Nitrate (Negative) Urine Bilirubin (Negative) mg/dL Urine Urobilinogen mg/dL Ur Leukocyte Esterase (Negative) /uL Ur Culture Indicated? POC Troponin I < 0.02 (0.00-0.08) 08/28/22 Range/Units 15:30 WBC (4.5-11.0) K/mcL RBC (4.63-6.08) M/mcL Hgb (13.7-17.5) g/dL Hct (40.1-51.0) % POC Hct (41-55) MCV (80.0-100.0) fL MCH (26.0-34.0) pg MCHC (31.0-36.0) g/dL RDW (11.5-14.5) % Plt Count (140-440) K/mcL MPV (8.8-12.5) fL Immature Gran % (Auto) (0.0-0.5) % Neut % (Auto) (38.0-78.0) % Lymph % (Auto) (15.5-49.0) % [place] % (Auto) (1.0-12.0) % Eos % (Auto) (0.0-7.0) % Baso % (Auto) (0.0-2.0) % Lymph # (Auto) (1.50-4.80) K/mcL [place] # (Auto) (0.10-0.90) K/mcL Eos # (Auto) (0.00-0.70) K/mcL Baso # (Auto) (0.00-0.30) K/mcL Immature Gran # (0.00-0.05) K/mcl Absolute Neutrophils (1.80-8.00) K/mcL POC pH (7.35-7.45) POC pCO2 (35-45) mmHg POC pO2 (80-100) mmHg POC HCO3 (22-26) mmHg POC Total CO2 (23-27) mmHg POC ABG Base Excess (-2-3) ABG Lactic Acid (0.5-2) VBG Lactic Acid (0.5-2.0) mmol/L Hgb O2 Saturation (94-97) POC Sodium (133-145) Sodium (133-145) mmol/L POC Potassium (3.3-5.1) Potassium (3.3-5.1) mmol/L POC Chloride (96-108) Chloride (96-108) mmol/L Carbon Dioxide (22-30) mmol/L Anion Gap (8.0-16.0) POC BUN (6-20) BUN (8-23) mg/dL Creatinine (0.7-1.2) mg/dL POC Creatinine (0.6-1.2) GFR Calculation Glucose (70-105) mg/dL POC Glucose (70-105) Calcium (8.6-10.4) mg/dL POC WB Ioniz Calcium (1.16-1.32) Total Bilirubin (0.1-1.0) mg/dL AST (<40) U/L ALT (<40) U/L Alkaline Phosphatase (39-117) U/L Total Protein (5.9-8.4) gm/dL Albumin (3.2-5.2) gm/dL Globulin (2.2-3.7) gm/dL Albumin/Globulin Ratio (1.0-2.3) Procalcitonin (<0.10) ng/mL Urine Color Lt. yellow Urine Appearance Clear (Clear) Urine pH 7.0 (5.0-9.0) Ur Specific [place] 1.020 (1.000-1.035) Urine Protein Negative (Negative) mg/dL Urine Glucose (UA) Negative (Negative) mg/dL Urine Ketones Negative (Negative) mg/dL Urine Occult Blood Negative (Negative) brenna/mcL Urine Nitrate Negative (Negative) Urine Bilirubin Negative (Negative) mg/dL Urine Urobilinogen Normal mg/dL Ur Leukocyte Esterase Negative (Negative) /uL Ur Culture Indicated? 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
[2022-08-28] MEDS ORDERED: ACETAMINOPHEN 325 MG TABLET PO ONE (13:44)
[2022-08-28] MEDS: LACTATED RINGERS 1,000 ML IV SCH ×2 (14:01→16:27)
[2022-08-28 14:05] LABS: ALT/SGPT 13 U/L (<40); AST/SGOT 29 U/L (<40); Albumin 3.7 gm/dL (3.2-5.2); Albumin/Globulin Ratio 1.4 (1.0-2.3); Alkaline Phosphatase 99 U/L (39-117); Bilirubin,Total 0.5 mg/dL (0.1-1.0); Blood Urea Nitrogen 15 mg/dL (8-23); Calcium 8.8 mg/dL (8.6-10.4); Carbon Dioxide 30 mmol/L (22-30); Chloride 102 mmol/L (96-108); Globulin 2.6 gm/dL (2.2-3.7); Glomerular Filtration Rate 67; Glucose 112 mg/dL (70-105)
[2022-08-28] MEDS ORDERED: cefTRIAXone 2 GM in DEXTROSE 5% IN WATER 50 ML IV ONE (14:29)
[2022-08-28] MEDS ORDERED: AZITHROMYCIN 500 MG in DEXTROSE 5% IN WATER 250 ML IV ONE (14:31)
[2022-08-28 16:45] LABS: Basophils # (Auto) 0.03 K/mcL (0.00-0.30); Basophils % (Auto) 0.4 % (0.0-2.0); Eosinophils # (Auto) 0.02 K/mcL (0.00-0.70); Eosinophils % (Auto) 0.2 % (0.0-7.0); Hematocrit 37.3 % (40.1-51.0); Hemoglobin 11.6 g/dL (13.7-17.5); Lymphocytes # (Auto) 0.45 K/mcL (1.50-4.80); Lymphocytes % (Auto) 5.6 % (15.5-49.0); Mean Cell Volume 95.6 fL (80.0-100.0); Mean Corpuscular HGB Conc 31.1 g/dL (31.0-36.0); Mean Platelet Volume 11.6 fL (8.8-12.5); Monocytes # (Auto) 0.78 K/mcL (0.10-0.90); Monocytes % (Auto) 9.6 % (1.0-12.0); Neutrophils % (Auto) 83.8 % (38.0-78.0); Platelet Count 148 K/mcL (140-440); WBC 8.1 K/mcL (4.5-11.0)
[2022-08-28] MEDS ORDERED: 0.9 % SODIUM CHLORIDE 1,000 ML IV SCH (17:00)
--- NOTE | 2022-08-28 17:03 | Internal Med History&Physical ---
HPI History of Present Illness Patient information: Note initiated : 08/28/22 at 4:53 pm Service Date, if different from initiated Date: [] Patient: Sadiq Hurley 87 y/o M admitted on for lung issues. Chief Complaint: [] History of present illness: Mr. Hurley is a 87 year old male with a history of COPD, nocturnal hypoxia with a 2 L/min oxygen requirement, degenerative disc disease, macular degeneration, history of prostate cancer who presented to the emergency department for shortness of breath. In the emergency department, the patient had an increase in his oxygen requirement of 3 L/min by nasal cannula. The patient had a fever with a temperature of 103.3 Fahrenheit. Chest x-ray showed a vague right lower lobe infiltrate. Patient was started on ceftriaxone and azithromycin in the emergency department. Hospital medicine was consulted for admission. Subsequently the patient's CBC resulted with no leukocytosis, procalcitonin level was normal. Respiratory virus panel was positive for rhinovirus. Hospital medicine was consulted for admission. We discussed the results and plan of care. We also discussed CODE STATUS, the patient wishes to be DNR/DNI. Review of systems Constitutional: no fever, fatigue, or weight loss Eyes: no vision changes or pain Cardiovascular: no chest pain, no palpitations Respiratory: Positive for shortness of breath and productive cough Gastrointestinal: no abdominal pain Genitourinary: no dysuria or difficulty voiding Musculoskeletal: no arthralgia or myalgia Integumentary: Healing skin lesion in left groin area Neurological: no focal weakness or numbness Psychiatric: no anxiety or depression Physical exam Head: Atraumatic, normal inspection. Eyes: normal appearance, no scleral icterus. Neck: full ROM Respiratory: Nasal cannula oxygen supplementation of 3 L/min, right lower lobe and right middle lobe crackles, no respiratory distress. Cardiovascular: normal rate and rhythm, S1, S2. GI/Abdominal: soft, nontender, no guarding. Extremities: full range of motion, nontender. Neurological: CN II-XII intact, intact motor, intact sensation. Psychiatric: normal mood. Skin: Healing wound on left groin. PFSH PFSH All Active Problems Colitis (Acute) Dizziness (Acute) Rhinorrhea (Acute) Nocturnal hypoxemia (Chronic) Pulmonary fibrosis (Chronic) Right lower lobe pulmonary nodule (Chronic) Severe chronic obstructive pulmonary disease (Chronic) PVC (premature ventricular contraction) (Chronic) Dehydration (Acute) Dyspnea (Acute) Arrhythmia (Chronic) Pain of right thumb (Chronic) Abdominal pain (Chronic) Urinary incontinence (Chronic) Tachycardia (Chronic) Paresthesia (Chronic) Osteoarthritis (Chronic) Onychomycosis (Chronic) Macular degeneration (Chronic) Irritable bowel syndrome (Chronic) Insomnia (Chronic 12/06/13) Inguinal pain (Chronic 08/26/13) Hypertrophic pyloric stenosis (Chronic) Glaucoma (Chronic 08/26/13) Gastroesophageal reflux (Chronic) Fatigue (Chronic) Dysuria (Chronic) Diverticulosis of colon (Chronic) Dermatitis (Chronic) Colon adenoma (Chronic) COPD (chronic obstructive pulmonary disease) (Chronic) Bilateral cataracts (Chronic) Anxiety (Chronic 12/06/13) Medical History Acute exacerbation of chronic obstructive airways disease Acute exacerbation of chronic obstructive airways disease Resolved. Now on home O2. Anxiety (12/06/13) Family issues Aspiration into airway Bilateral cataracts Bronchitis Bronchitis with bronchospasm Resolved at present Colon adenoma 07/17 Community acquired pneumonia 07/03/2019 bilateral lower and right middle lobes. Possibly aspiration pneumonia. Positive for pneumococcus. Patient finished Levaquin and Flagyl. Pneumonia has resolved. Follow-up CBC, CMP, and UA today. COPD (chronic obstructive pulmonary disease) Managed by pulmonology. Continue Symbicort and nocturnal O2 Albuterol as needed Dermatitis 2010 Monilial Diverticulitis Diverticulitis of intestine follow-up Diverticulosis of colon Dysuria Fatigue Gastroesophageal reflux Glaucoma (08/26/13) Hypertrophic pyloric stenosis Inguinal pain (08/26/13) Insomnia (12/06/13) Irritable bowel syndrome Macular degeneration Nocturnal hypoxemia Onychomycosis Osteoarthritis Paresthesia intermittent, right foot Pneumonia Prostate cancer 2000 Pulmonary fibrosis Right lower lobe pulmonary nodule x2. Follow-up CT in 6 months Sepsis Resolved. Severe chronic obstructive pulmonary disease Oxygen dependent. Continue Symbicort twice daily and albuterol as needed. Refer to pulmonology. Tachycardia Urinary incontinence Surgical History H/O prostatectomy 2001 History of cataract surgery Right eye History of cataract surgery ~2018 OS Hx of colonoscopy 07/2014 [employer], uncomplicated diverticulitis Hx of detached retina repair Right Hx of elbow surgery Left Hx of esophagogastroduodenoscopy 08/17 "ok" Hx of inguinal hernia repair 11/08/1996-Right Hx of radical prostatectomy 2002 Family History none listed Diabetes mellitus Cardiac disease father Coronary artery disease Irritable bowel syndrome Acute myocardial infarction brother Irritable bowel syndrome Social History household members: spouse housing: house lives independently: Yes marital status: education level: high school occupational status: retired occupation: Retired [employer] smoking status: Former smoker quit date: 10/12/93 pack-years: 35 alcohol intake frequency: holiday/special occasion only substance use type: does not use MEDS/ALLERGIES Home Medications and Allergies Home Medications Medication Instructions Recorded Confirmed Type latanoprost 0.005 % eye drops 1 drp ophthalmic (eye) QHS 08/09/15 08/14/22 History vit C 226 mg-vit E 90 mg-copper 1 cap PO BID 08/09/15 08/14/22 History 0.8 mg-zinc oxide-lutein 5 mg capsule magnesium oxide 500 mg PO QDAY 07/03/19 08/14/22 History albuterol sulfate 90 mcg/actuation 2 puff inhalation Q6H PRN unknown 11/03/19 08/14/22 Rx aerosol inhaler #18 grams multivitamin with iron (Daily 1 tab PO QDAY 05/22/20 08/14/22 History Multiple Vitamins with Iron tablet) cholecalciferol (vitamin D3) 100 100 mcg PO QDAY 12/14/20 08/14/22 History mcg (4,000 unit) capsule budesonide-formoterol HFA 80 1 inh inhalation BID #6.9 grams 03/31/22 08/14/22 Rx mcg-4.5 mcg/actuation aerosol inhaler trazodone 50 mg tablet 25 mg PO QHS PRN insomnia #1 tab 07/03/22 08/14/22 Rx Spiriva Respimat 2.5 mcg/actuation 2 puff inhalation Q24H #4 grams 07/30/22 08/14/22 Rx solution for inhalation (tiotropium bromide) Allergies Allergy/AdvReac Type Severity Reaction Status Date / Time Penicillins Allergy Severe Hives, Verified 08/14/22 10:08 Swelling, difficulty breathing. EXAM Constitutional Vitals: Temp Pulse Resp BP Pulse Ox O2 Del Method O2 Flow Rate 99.1 F H 87 15 104/60 99 3 08/28/22 14:47 08/28/22 16:31 08/28/22 16:31 08/28/22 16:31 08/28/22 16:31 08/28/22 13:16 08/28/22 13:16 DATA Data Completed and Pending Labs: Labs from last 24 hours 08/28/22 08/28/22 08/28/22 15:30 13:18 12:22 WBC RBC Hgb Hct POC Hct MCV MCH MCHC RDW Plt Count MPV Immature Gran % (Auto) Neut % (Auto) Lymph % (Auto) [place] % (Auto) Eos % (Auto) Baso % (Auto) Lymph # (Auto) [place] # (Auto) Eos # (Auto) Baso # (Auto) Immature Gran # Absolute Neutrophils POC pH 7.47 H POC pCO2 38.4 POC pO2 63 L POC HCO3 27.7 H POC Total CO2 29.0 H POC ABG Base Excess 4.0 H ABG Lactic Acid 0.4 L VBG Lactic Acid Hgb O2 Saturation 93.0 L POC Sodium Sodium POC Potassium Potassium POC Chloride Chloride Carbon Dioxide Anion Gap POC BUN BUN Creatinine POC Creatinine GFR Calculation Glucose POC Glucose Calcium POC WB Ioniz Calcium Total Bilirubin AST ALT Alkaline Phosphatase Total Protein Albumin Globulin Albumin/Globulin Ratio Procalcitonin Urine Color Pending Urine Appearance Pending Urine pH Pending Ur Specific [place] Pending Urine Protein Pending Urine Glucose (UA) Pending Urine Ketones Pending Urine Occult Blood Pending Urine Nitrate Pending Urine Bilirubin Pending Urine Urobilinogen Pending Ur Leukocyte Esterase Pending POC Troponin I < 0.02 08/28/22 08/28/22 08/28/22 12:22 12:18 12:18 WBC RBC Hgb Hct POC Hct 36.0 L MCV MCH MCHC RDW Plt Count MPV Immature Gran % (Auto) Neut % (Auto) Lymph % (Auto) [place] % (Auto) Eos % (Auto) Baso % (Auto) Lymph # (Auto) [place] # (Auto) Eos # (Auto) Baso # (Auto) Immature Gran # Absolute Neutrophils POC pH POC pCO2 POC pO2 POC HCO3 POC Total CO2 32.0 H POC ABG Base Excess ABG Lactic Acid VBG Lactic Acid 1.0 Hgb O2 Saturation POC Sodium 139 Sodium 140 POC Potassium 4.6 Potassium 4.7 POC Chloride 100 Chloride 102 Carbon Dioxide 30 Anion Gap 8.0 POC BUN 20 BUN 15 Creatinine 1.0 POC Creatinine 1.1 GFR Calculation 67 Glucose 112 H POC Glucose 116 H Calcium 8.8 POC WB Ioniz Calcium 1.08 L Total Bilirubin 0.5 AST 29 ALT 13 Alkaline Phosphatase 99 Total Protein 6.3 Albumin 3.7 Globulin 2.6 Albumin/Globulin Ratio 1.4 Procalcitonin 0.09 Urine Color Urine Appearance Urine pH Ur Specific [place] Urine Protein Urine Glucose (UA) Urine Ketones Urine Occult Blood Urine Nitrate Urine Bilirubin Urine Urobilinogen Ur Leukocyte Esterase POC Troponin I 08/28/22 12:07 WBC 8.1 RBC 3.90 L Hgb 11.6 L Hct 37.3 L POC Hct MCV 95.6 MCH 29.7 MCHC 31.1 RDW 14.0 Plt Count 148 MPV 11.6 Immature Gran % (Auto) 0.4 Neut % (Auto) 83.8 H Lymph % (Auto) 5.6 L [place] % (Auto) 9.6 Eos % (Auto) 0.2 Baso % (Auto) 0.4 Lymph # (Auto) 0.45 L [place] # (Auto) 0.78 Eos # (Auto) 0.02 Baso # (Auto) 0.03 Immature Gran # 0.03 Absolute Neutrophils 6.79 POC pH POC pCO2 POC pO2 POC HCO3 POC Total CO2 POC ABG Base Excess ABG Lactic Acid VBG Lactic Acid Hgb O2 Saturation POC Sodium Sodium POC Potassium Potassium POC Chloride Chloride Carbon Dioxide Anion Gap POC BUN BUN Creatinine POC Creatinine GFR Calculation Glucose POC Glucose Calcium POC WB Ioniz Calcium Total Bilirubin AST ALT Alkaline Phosphatase Total Protein Albumin Globulin Albumin/Globulin Ratio Procalcitonin Urine Color Urine Appearance Urine pH Ur Specific [place] Urine Protein Urine Glucose (UA) Urine Ketones Urine Occult Blood Urine Nitrate Urine Bilirubin Urine Urobilinogen Ur Leukocyte Esterase POC Troponin I A/P Narrative A/P Narrative: Assessment: 87 year old male with a history of COPD, nocturnal hypoxia with a 2 L/min oxygen requirement, degenerative disc disease, macular degeneration, history of prostate cancer who presented to the emergency department for shortness of breath and found to have an increased oxygen requirement of 3 L/min by nasal cannula. Chest x-ray shows a right lower lobe infiltrate. Respiratory virus panel positive for rhinovirus. Procalcitonin was normal, the patient also did not have leukocytosis on presentation which suggest this may be a viral illness versus other cause for the right lung findings on x-ray. #Acute on chronic hypoxic respiratory failure #Possible right lower lobe community-acquired pneumonia #Rhinovirus infection #Generalized weakness #Severe COPD #Nocturnal hypoxia with 2 L/min oxygen requirement #Degenerative disc disease #History of prostate cancer Plan -Ceftriaxone and azithromycin. -Oxygen supplementation wean back to baseline as tolerated. -IV fluid today. -DuoNebs as needed. -Sputum gram stain and culture. -MRSA nasal PCR. -[place] PCR. -D-dimer, if elevated obtain CTA chest. -Home medication reconciliation. -Regular diet. -PT and OT consult. -DVT prophylaxis: Lovenox -CODE STATUS: DNR/DNI -Disposition: Probably home when stable. Time Spent With Patient Time: Total time spent is greater than 50% in coordination of care (as documented) at patient's floor/unit and/or counseling patient:
[2022-08-28] MEDS ORDERED: methylPREDNISolone SOD SUCC 125 MG/2 ML VIAL IV ONE (17:06)
[2022-08-28 17:17] LABS: Appearance,Urine CLEAR (Clear); Bilirubin,Urine NEGATIVE (Negative); Color,Urine LT. YELLOW; Culture Indicated,Urine No; Glucose,Urine (UA) NEGATIVE (Negative); Ketones,Urine NEGATIVE (Negative); Leukocyte Esterase,Urine NEGATIVE /uL (Negative); Nitrate,Urine NEGATIVE (Negative); Protein,Urine NEGATIVE (Negative); Urine Blood NEGATIVE ery/mcL (Negative); Urobilinogen,Urine Normal
[2022-08-28] MEDS ORDERED: ACETAMINOPHEN 325 MG TABLET PO PRN (17:29)
[2022-08-28] MEDS ORDERED: ONDANSETRON 4 MG/2 ML VIAL IV PRN (17:29)
[2022-08-28] MEDS ORDERED: IPRATROPIUM/ALBUTEROL 3 ML AMPUL.NEB NEB PRN (17:29)
--- NOTE | 2022-08-28 18:18 | EKG ---
[facility] Test Date: 2022-08-28 Pat Name: Sadiq Hurley Department: ED Room: Gender: Male Rn Surgery Icu: CS : 1935 Requested By: Lexis Coates Order Number: [id number] Reading MD: Gordon Hall Measurements Intervals [place] Rate: 94 P: 5 AL: 161 QRS: -90 QRSD: 154 T: 49 QT: 358 QTc: 448 Interpretive Statements Sinus tachycardia Multiple ventricular premature complexes RBBB Electronically Signed On 08-28-2022 18:18:21 PST by Gordon Hall /store/M0/[id number].pdf
[2022-08-28] MEDS: DOCUSATE SODIUM 100 MG CAPSULE PO SCH (20:36)
[2022-08-28] MEDS: 0.9 % SODIUM CHLORIDE 10 ML SYRINGE IV SCH ×2 (20:36)
[2022-08-28] MEDS ORDERED: SENNOSIDES 1 TABLET PO SCH (21:00)
[2022-08-29] MEDS ORDERED: AZITHROMYCIN 500 MG in DEXTROSE 5% IN WATER 250 ML IV SCH (02:00)
[2022-08-29] MEDS: 0.9 % SODIUM CHLORIDE 10 ML SYRINGE IV SCH ×2 (04:45→14:07)
[2022-08-29 06:58] LABS: Hematocrit 35.4 % (40.1-51.0); Hemoglobin 11.1 g/dL (13.7-17.5); Mean Cell Volume 94.4 fL (80.0-100.0); Mean Corpuscular HGB Conc 31.4 g/dL (31.0-36.0); Mean Platelet Volume 11.2 fL (8.8-12.5); Platelet Count 120 K/mcL (140-440); RBC 3.75 M/mcL (4.63-6.08); Red Cell Distribution Width 13.7 % (11.5-14.5); WBC 11.5 K/mcL (4.5-11.0)
[2022-08-29 07:35] LABS: ALT/SGPT 11 U/L (<40); AST/SGOT 20 U/L (<40); Albumin 3.5 gm/dL (3.2-5.2); Albumin/Globulin Ratio 1.4 (1.0-2.3); Alkaline Phosphatase 83 U/L (39-117); Bilirubin,Direct < 0.2 mg/dL (0-0.3); Bilirubin,Total 0.5 mg/dL (0.1-1.0); Blood Urea Nitrogen 18 mg/dL (8-23); Calcium 8.8 mg/dL (8.6-10.4); Carbon Dioxide 29 mmol/L (22-30); Chloride 103 mmol/L (96-108); Globulin 2.5 gm/dL (2.2-3.7); Glomerular Filtration Rate 76; Glucose 150 mg/dL (70-105); Lactate Dehydrogenase 173 U/L (135-225); Phosphorous 3.7 mg/dL (2.5-4.5); Triglycerides 32 mg/dL (<150); Uric Acid 4.1 mg/dL (2.5-8.0)
[2022-08-29 08:36] LABS: Band Neutrophils % 11 % (0-10); Hypochromasia 1+ (None Seen); Lymphocytes % 3 % (15-49); Monocytes % (Manual) 6 % (1-12); Platelet Estimate DECREASED (Normal); RBC Morphology ABNORMAL (Normal); Segmented Neutrophils % 80 % (38-78)
[2022-08-29] MEDS: DOCUSATE SODIUM 100 MG CAPSULE PO SCH (08:54)
[2022-08-29] MEDS ORDERED: ENOXAPARIN 40 MG/0.4 ML SYRINGE SQ SCH (09:00)
[2022-08-29] MEDS ORDERED: IOPAMIDOL 100 ML BOTTLE IV ONE (10:08)
--- NOTE | 2022-08-29 10:50 | Cat Scan Report ---
CLINICAL INFORMATION: Elevated d-dimer and hypoxia COMPARISON: Chest CTs 06/16/2007 and 06/11/2020. TECHNIQUE: 80ml of Isovue-370 were injected intravenously. Using SmartPrep to maximize pulmonary artery opacification, .625mm helical slices were obtained from the lung apices through the lung bases. Following reconstruction, 2.5 mm sagittal, coronal, and axial reformations were processed. The exam was reviewed at mediastinal, lung, and bone windows. The exam was performed using radiation dose optimization techniques including, but not limited to, automated exposure control, adjustment of the mA and/or kV according to patient size and use of iterative reconstruction technique. FINDINGS: Pulmonary parenchymal windows show moderate centrilobular emphysema featuring chronic bronchitis with elevated lung volumes wall thickening/dilatation of the bronchi and multiple bullae predominantly within the upper lobes but also scattered within the periphery of the lower lobes. There is also scattered fibrosis in the periphery of both lungs. A moderate consolidated infiltrate, likely pneumonia, has developed in the posterior right lower lobe surrounding honeycomb fibrosis. Subsegmental atelectasis seen in the posterior left lower lobe. 3.8 mm nodule in the lateral basilar segment left lower lobe on image 92 exhibits long-term stability. There are no new or enlarging nodules. Mediastinal windows show the heart is grossly normal in size and configuration. Scattered calcific plaque seen in the coronary arteries. The pulmonary arteries are normal diameter and well-opacified without evidence of embolus. Thoracic aorta is also normal diameter and well-opacified. There is no adenopathy in the mediastinal, hilar or axillary regions. Esophagus is grossly normal. The thyroid is unremarkable. Bones and soft tissues the chest wall are normal. 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 This is unchanged from the 2020 exam. There are multiple loops of small large bowel interposed between the liver surface and the anterior abdominal wall as previously seen. IMPRESSION: 1. No evidence of pulmonary embolus 2. Moderate consolidated infiltrate, likely pneumonia, in the posterior right lower lobe with underlying honeycomb fibrosis. Fibrosis is new from the previous study and could indicate developing UIP 3. Moderate centrilobular emphysema. 4. Solitary 3.8 mm nodule anterior segment left lower lobe demonstrate long-term stability. No evidence of pulmonary malignancy. 5. 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 Interpreted and Authenticated by: Brennan Small 08/29/22
[2022-08-29] MEDS ORDERED: predniSONE 20 MG TABLET PO ONE (12:40)
--- NOTE | 2022-08-29 12:49 | Discharge Summary ---
Discharge Provider Provider IMPORTANT FOLLOW-UP INFORMATION FOR PCP: Patient information: Note initiated : 08/29/22 at 12:44 pm Service Date, if different from initiated Date: [] Patient: Sadiq Hurley 87 y/o M admitted on 08/28/22 for lung issues. Chief Complaint: [] Date of admission: 08/28/22 17:28 Discharge date: 08/29/22 Primary care physician: Brennan Kelly DO Consults: 08/28/22 Consult to Physician [CONS] Stat Comment: Consulting Provider: Arnaud Johnson Reason For Exam: Physician to Consult COURSE Hospital Course Hospital course: Mr. Hurley is a 87 year old male with a history of COPD, nocturnal hypoxia with a 2 L/min oxygen requirement, degenerative disc disease, macular degeneration, history of prostate cancer who presented to the emergency [facility] for shortness of breath. In the emergency department, the patient had an increase in his oxygen requirement of 3 L/min by nasal cannula. The patient had a fever with a temperature of 103.3 Fahrenheit. Chest x-ray showed a vague right lower lobe infiltrate. Patient was started on ceftriaxone and azithromycin in the emergency department. Hospital medicine was consulted for admission. Subsequently the patient's CBC resulted with no leukocytosis, procalcitonin level was normal. Respiratory virus panel was positive for rhinovirus. Hospital medicine was consulted for admission. We discussed the results and plan of care. We also discussed CODE STATUS, the patient wishes to be DNR/DNI. 08/29 The patient was on room air this morning, work-up positive for rhinovirus infection. D-dimer was elevated so CTA chest obtained and was negative for pulmonary embolism, positive for moderate consolidated infiltrate in the posterior right lower lobe with underlying honeycomb fibrosis. The patient has a mild leukocytosis, likely steroid-induced. Discharged to home on oral levofloxacin, prednisone 40 mg daily for 5 days, refilled albuterol inhaler. The patient has an oxygen saturation monitor at home, was advised to monitor his oxygen saturation. The patient does have oxygen at home, at baseline he requires 2 L/min nasal cannula oxygen supplementation at nighttime. Follow-up with primary care provider. Consider repeating CT chest to follow fibrosis seen on the CTA chest. The patient does follow with pulmonology periodically and was last seen on 08/05/2022. Physical exam Head: Atraumatic, normal inspection. Eyes: normal appearance, no scleral icterus. Neck: full ROM Respiratory: Nasal cannula oxygen supplementation of 3 L/min, right lower lobe and right middle lobe crackles, no respiratory distress. Cardiovascular: normal rate and rhythm, S1, S2. GI/Abdominal: soft, nontender, no guarding. Extremities: full range of motion, nontender. Neurological: CN II-XII intact, intact motor, intact sensation. Psychiatric: normal mood. Discharge diagnosis: Community-acquired pneumonia Secondary discharge diagnosis: Rhinovirus infection COPD Time Spent with Patient Time attestation: Total time spent providing and/or coordinating discharge services: Time spent: Less than 30 minutes EXAM Constitutional Vitals: Temp Pulse Resp BP Pulse Ox O2 Del Method O2 Flow Rate 97.3 F 89 16 98/55 91 92 08/29/22 12:00 08/29/22 12:00 08/29/22 12:00 08/29/22 12:00 08/29/22 12:00 08/29/22 12:00 08/29/22 08:00 Discharge Data Data Completed and Pending Labs on day of discharge: Labs from last 24 hours 08/29/22 08/29/22 08/28/22 05:36 05:36 15:30 WBC 11.5 H RBC 3.75 L Hgb 11.1 L Hct 35.4 L MCV 94.4 MCH 29.6 MCHC 31.4 RDW 13.7 Plt Count 120 L MPV 11.2 Immature Gran % (Auto) Neut % (Auto) Lymph % (Auto) [place] % (Auto) Eos % (Auto) Baso % (Auto) Lymph # (Auto) [place] # (Auto) Eos # (Auto) Baso # (Auto) Seg Neutrophils % 80 H Band Neutrophils % 11 H Lymphocytes % 3 L Monocytes % (Manual) 6 Immature Gran # Absolute Neutrophils Platelet Estimate Decreased A RBC Morphology Abnormal A Hypochromasia 1+ A D-Dimer VBG Lactic Acid Sodium 138 Potassium 4.9 Chloride 103 Carbon Dioxide 29 Anion Gap 6.0 L BUN 18 Creatinine 0.9 GFR Calculation 76 Glucose 150 H Uric Acid 4.1 Calcium 8.8 Phosphorus 3.7 Magnesium 2.1 Total Bilirubin 0.5 Direct Bilirubin < 0.2 GGT 17 AST 20 ALT 11 Alkaline Phosphatase 83 Lactate Dehydrogenase 173 Total Protein 6.0 Albumin 3.5 Globulin 2.5 Albumin/Globulin Ratio 1.4 Triglycerides 32 Procalcitonin Urine Color Lt. yellow Urine Appearance Clear Urine pH 7.0 Ur Specific [place] 1.020 Urine Protein Negative Urine Glucose (UA) Negative Urine Ketones Negative Urine Occult Blood Negative Urine Nitrate Negative Urine Bilirubin Negative Urine Urobilinogen Normal Ur Leukocyte Esterase Negative Ur Culture Indicated? No POC Troponin I 08/28/22 08/28/22 08/28/22 13:18 12:18 12:18 WBC RBC Hgb Hct MCV MCH MCHC RDW Plt Count MPV Immature Gran % (Auto) Neut % (Auto) Lymph % (Auto) [place] % (Auto) Eos % (Auto) Baso % (Auto) Lymph # (Auto) [place] # (Auto) Eos # (Auto) Baso # (Auto) Seg Neutrophils % Band Neutrophils % Lymphocytes % Monocytes % (Manual) Immature Gran # Absolute Neutrophils Platelet Estimate RBC Morphology Hypochromasia D-Dimer 2.75 H VBG Lactic Acid Sodium Potassium Chloride Carbon Dioxide Anion Gap BUN Creatinine GFR Calculation Glucose Uric Acid Calcium Phosphorus Magnesium Total Bilirubin Direct Bilirubin GGT AST ALT Alkaline Phosphatase Lactate Dehydrogenase Total Protein Albumin Globulin Albumin/Globulin Ratio Triglycerides Procalcitonin 0.09 Urine Color Urine Appearance Urine pH Ur Specific [place] Urine Protein Urine Glucose (UA) Urine Ketones Urine Occult Blood Urine Nitrate Urine Bilirubin Urine Urobilinogen Ur Leukocyte Esterase Ur Culture Indicated? POC Troponin I < 0.02 08/28/22 08/28/22 12:18 12:07 WBC 8.1 RBC 3.90 L Hgb 11.6 L Hct 37.3 L MCV 95.6 MCH 29.7 MCHC 31.1 RDW 14.0 Plt Count 148 MPV 11.6 Immature Gran % (Auto) 0.4 Neut % (Auto) 83.8 H Lymph % (Auto) 5.6 L [place] % (Auto) 9.6 Eos % (Auto) 0.2 Baso % (Auto) 0.4 Lymph # (Auto) 0.45 L [place] # (Auto) 0.78 Eos # (Auto) 0.02 Baso # (Auto) 0.03 Seg Neutrophils % Band Neutrophils % Lymphocytes % Monocytes % (Manual) Immature Gran # 0.03 Absolute Neutrophils 6.79 Platelet Estimate RBC Morphology Hypochromasia D-Dimer VBG Lactic Acid 1.0 Sodium 140 Potassium 4.7 Chloride 102 Carbon Dioxide 30 Anion Gap 8.0 BUN 15 Creatinine 1.0 GFR Calculation 67 Glucose 112 H Uric Acid Calcium 8.8 Phosphorus Magnesium Total Bilirubin 0.5 Direct Bilirubin GGT AST 29 ALT 13 Alkaline Phosphatase 99 Lactate Dehydrogenase Total Protein 6.3 Albumin 3.7 Globulin 2.6 Albumin/Globulin Ratio 1.4 Triglycerides Procalcitonin Urine Color Urine Appearance Urine pH Ur Specific [place] Urine Protein Urine Glucose (UA) Urine Ketones Urine Occult Blood Urine Nitrate Urine Bilirubin Urine Urobilinogen Ur Leukocyte Esterase Ur Culture Indicated? POC Troponin I Preliminary micro results at discharge 08/28/22 12:32 Blood Culture - Preliminary Blood 08/28/22 12:28 Blood Culture - Preliminary Blood 08/29/22 06:00 Gram Stain - Preliminary Sputum source - Expectorated Discharge Plan Patient/Caregiver Discharge Instructions Activity: increase activity as tolerated Diet: Regular Diet Prescriptions: New albuterol sulfate 90 mcg/actuation aerosol powdr breath activated 2 inh inhalation Q4H PRN (Reason: shortness of breath or wheezing) Qty: 1 6RF prednisone 20 mg tablet 40 mg PO QDAY 5 Days Qty: 10 0RF levofloxacin 750 mg tablet 750 mg PO QDAY 5 Days Qty: 5 0RF Continued budesonide-formoterol 80-4.5 mcg/actuation HFA aerosol inhaler 1 inh INHALATION BID Qty: 6.9 5RF Spiriva Respimat 2.5 mcg/actuation mist 2 puff inhalation Q24H Qty: 4 6RF multivitamin with iron [Daily Multiple Vitamins/Iron] Tablet 1 tab PO QDAY trazodone 50 mg tablet 25 mg PO QHS PRN (Reason: insomnia) Qty: 1 0RF latanoprost 0.005 % drops 1 drp OPHTHALMIC QHS vit M-E-hbossj-zinc-lutein 226-200-5-0.8 qw-nnrh-gv-mg capsule 1 cap PO BID cholecalciferol (vitamin D3) 100 mcg (4,000 unit) capsule 100 mcg PO QDAY magnesium oxide 200 MG tablet 500 mg PO QDAY Rx Instructions: stated takes two 250mg No Action albuterol sulfate 90 mcg/actuation HFA aerosol inhaler 2 puff INHALATION Q6H PRN (Reason: unknown) Qty: 18 3RF Follow Up Plan Follow up with: Brennan Kelly DO [Primary Care Provider] - Patient Disposition: Home, Self-Care Overall status at discharge: patient is progressing back to baseline Discharge Orders: Discharge Order (Routine); Ordered 08/29/22 Ordered By: Arnaud ROSS VTE Deep Vein Thrombosis/Pulmonary Embolism Present on Admission: No
[2022-08-29] MEDS ORDERED: cefTRIAXone 1 GM VIAL IV SCH (14:00)
== END 2022-08-29 14:40 | disposition home or self-care (01) | DRG 193 ==
LOC: ED 11:38 → MEDSUR 17:28
PROVIDERS: ADMIT Internal Medicine; ATTEND Internal Medicine

== ENCOUNTER 2022-09-27 21:07 | Inpatient (IN) ==
--- NOTE | 2022-09-27 21:19 | Emergency Department Note ---
HPI General Chief complaint: Shortness of Breath/Dyspnea Stated complaint: Shortness of Breath, productive cough for a month Time Seen by Provider: 09/27/22 21:18 Source: patient Mode of arrival: ambulatory Limitations: no limitations History of Present Illness HPI Narrative: Narrative: Patient is an 87-year-old male with a complex history who presents to the emergency department due to shortness of breath and cough. He states that he has had cough for approximately a month, but has had significant shortness of breath today. He states that he has had frequent pneumonia in the past that he was told secondary to aspiration. For this reason he was considered that he had again developed pneumonia. He also endorses runny nose, but states that this is not abnormal for him. He states that his cough is a dry cough. He denies any other concerns at this time. Related Data Home Medications Medication Instructions Recorded Confirmed latanoprost 0.005 % eye drops 1 drp ophthalmic (eye) QHS 08/09/15 09/08/22 vit C 226 mg-vit E 90 mg-copper 1 cap PO BID 08/09/15 09/08/22 0.8 mg-zinc oxide-lutein 5 mg capsule magnesium oxide 500 mg PO QDAY 07/03/19 09/08/22 multivitamin with iron (Daily 1 tab PO QDAY 05/22/20 09/08/22 Multiple Vitamins with Iron tablet) cholecalciferol (vitamin D3) 100 100 mcg PO QDAY 12/14/20 09/08/22 mcg (4,000 unit) capsule trazodone 50 mg tablet 50 mg PO QHS PRN insomnia 09/27/22 Previous Rx's Medication Instructions Recorded albuterol sulfate 90 mcg/actuation 2 puff inhalation Q6H PRN unknown 11/03/19 aerosol inhaler #18 grams budesonide-formoterol HFA 80 1 inh inhalation BID #6.9 grams 03/31/22 mcg-4.5 mcg/actuation aerosol inhaler Spiriva Respimat 2.5 mcg/actuation 2 puff inhalation Q24H #4 grams 07/30/22 solution for inhalation (tiotropium bromide) albuterol sulfate 90 mcg/actuation 2 inh inhalation Q4H PRN shortness 08/29/22 breath activated powder inhaler of breath or wheezing #1 ea Allergies Allergy/AdvReac Type Severity Reaction Status Date / Time Penicillins Allergy Severe Hives, Verified 09/27/22 21:17 Swelling, difficulty breathing. Amoxicillin Allergy Verified 09/27/22 21:17 Review of Systems ROS ROS Narrative: Narrative: Constitutional: Denies fever or weakness Eyes: Denies eye pain or vision change ENT ED: Reports rhinorrhea; Denies throat pain Cardiovascular: Denies chest pain, dyspnea on exertion, orthopnea or edema Respiratory: Reports shortness of breath and cough Gastrointestinal: Denies abdominal pain, nausea, vomiting, diarrhea, constipation, hematochezia or melena Genitourinary: Denies dysuria, frequency, hematuria or incontinence Musculoskeletal: Denies back pain or myalgia Integumentary: Denies rash or lesions Neurological: Denies headache, weakness, numbness, confusion, abnormal gait or dizziness Endocrine: Denies fatigue or polyuria Hematological/Lymphatic: Denies easy bleeding or easy bruising PFSH Narrative Patient History Narrative: Narrative: Medical/Surgical/Family History All Active Problems (Updated 09/28/22 @ 03:37 by Justin Watts MD) Pneumonia (Acute) Community acquired pneumonia (Acute) Colitis (Acute) Dizziness (Acute) Rhinorrhea (Acute) Nocturnal hypoxemia (Chronic) Pulmonary fibrosis (Chronic) Right lower lobe pulmonary nodule (Chronic) Severe chronic obstructive pulmonary disease (Chronic) PVC (premature ventricular contraction) (Chronic) Dehydration (Acute) Dyspnea (Acute) Arrhythmia (Chronic) Pain of right thumb (Chronic) Abdominal pain (Chronic) Urinary incontinence (Chronic) Tachycardia (Chronic) Paresthesia (Chronic) Osteoarthritis (Chronic) Onychomycosis (Chronic) Macular degeneration (Chronic) Irritable bowel syndrome (Chronic) Insomnia (Chronic 12/06/13) Inguinal pain (Chronic 08/26/13) Hypertrophic pyloric stenosis (Chronic) Glaucoma (Chronic 08/26/13) Gastroesophageal reflux (Chronic) Fatigue (Chronic) Dysuria (Chronic) Diverticulosis of colon (Chronic) Dermatitis (Chronic) Colon adenoma (Chronic) COPD (chronic obstructive pulmonary disease) (Chronic) Bilateral cataracts (Chronic) Anxiety (Chronic 12/06/13) Medical History Acute exacerbation of chronic obstructive airways disease Acute exacerbation of chronic obstructive airways disease Resolved. Now on home O2. Anxiety (12/06/13) Family issues Aspiration into airway Bilateral cataracts Bronchitis Bronchitis with bronchospasm Resolved at present Colon adenoma 07/17 Community acquired pneumonia 07/03/2019 bilateral lower and right middle lobes. Possibly aspiration pneumonia. Positive for pneumococcus. Patient finished Levaquin and Flagyl. Pneumonia has resolved. Follow-up CBC, CMP, and UA today. COPD (chronic obstructive pulmonary disease) Managed by pulmonology. Continue Symbicort and nocturnal O2 Albuterol as needed Dermatitis 2010 Monilial Diverticulitis Diverticulitis of intestine follow-up Diverticulosis of colon Dysuria Fatigue Gastroesophageal reflux Glaucoma (08/26/13) Hypertrophic pyloric stenosis Inguinal pain (08/26/13) Insomnia (12/06/13) Irritable bowel syndrome Macular degeneration Nocturnal hypoxemia Onychomycosis Osteoarthritis Paresthesia intermittent, right foot Pneumonia Prostate cancer 2000 Pulmonary fibrosis Right lower lobe pulmonary nodule x2. Follow-up CT in 6 months Sepsis Resolved. Severe chronic obstructive pulmonary disease Oxygen dependent. Continue Symbicort twice daily and albuterol as needed. Refer to pulmonology. 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, uncomplicated diverticulitis Hx of detached retina repair Right Hx of elbow surgery Left Hx of esophagogastroduodenoscopy 08/17 "ok" Hx of inguinal hernia repair 11/08/1996-Right Hx of radical prostatectomy 2001 Family History none listed Diabetes mellitus Cardiac disease father Coronary artery disease Irritable bowel syndrome Acute myocardial infarction brother Irritable bowel syndrome Social History Smoking Status: Former smoker Alcohol Intake Frequency: holiday/special occasion only Substance Use: does not use Exam Narrative Narrative: Narrative: General Limitations: no limitations General appearance: Present alert and in no apparent distress; Absent anxious, appears intoxicated or sleepy Head Head: Present atraumatic and normocephalic Eye Eye: Present EOMI; Absent scleral icterus or nystagmus ENT ENT: Present mucous membranes moist; Absent nasal congestion Neck Neck: Present full ROM; Absent tenderness Chest Chest: Present normal inspection and symmetric chest wall rise; Absent tenderne ss Respiratory Respiratory: Present normal lung sounds bilaterally; Absent respiratory distress or accessory muscle use Cardiovascular Cardiovascular: Present regular rate, normal rhythm and normal heart sounds Adbominal Abdominal: Present soft and normal bowel sounds; Absent distention or tenderness Extremities Extremities: Present normal inspection and full ROM; Absent calf tenderness Back Back: Present normal inspection and full ROM Neurological Neurological: Present alert and oriented X3 Psychiatric Psychiatric: Present normal affect and normal mood Skin Skin: Present warm (WNL), dry and normal color Course Vital Signs Vital signs: Vital Signs Temperature 98.8 F 09/27/22 21:09 Pulse Rate 114 H 09/27/22 21:09 Respiratory Rate 24 H 09/27/22 21:09 Blood Pressure 117/71 09/27/22 21:09 Pulse Oximetry (%) 83 L 09/27/22 21:09 Oxygen Delivery Method 09/27/22 21:09 Oxygen Flow Rate (L/min) 0 09/27/22 21:09 Temperature 98.8 F 09/27/22 23:15 Pulse Rate 67 09/27/22 23:15 Respiratory Rate 17 09/27/22 23:15 Blood Pressure 135/64 09/27/22 23:15 Pulse Oximetry (%) 93 09/27/22 23:15 Oxygen Delivery Method 09/27/22 23:05 Oxygen Flow Rate (L/min) 2 09/27/22 23:05 MDM MDM Narrative Medical decision making narrative: Narrative: Patient is an 87-year-old male who presents to the emergency department due to concern for pneumonia. Differential diagnoses include COVID, influenza, pneumonia, ACS, and COPD exacerbation. COVID/influenza swab is negative. Chest x-ray is consistent with pneumonia. Patient has been given IV antibiotics. I have spoken with Dr. Garza who has agreed with admission. Lab Data Result diagrams: 09/27/22 21:38 Labs: Lab Results 09/27/22 09/27/22 09/27/22 Range/Units 21:23 21:23 21:38 WBC 9.7 (4.5-11.0) K/mcL RBC 4.37 L (4.63-6.08) M/mcL Hgb 12.8 L (13.7-17.5) g/dL Hct 41.2 (40.1-51.0) % POC Hct 42.0 (41-55) MCV 94.3 (80.0-100.0) fL MCH 29.3 (26.0-34.0) pg MCHC 31.1 (31.0-36.0) g/dL RDW 14.0 (11.5-14.5) % Plt Count 197 (140-440) K/mcL MPV 10.5 (8.8-12.5) fL Immature Gran % (Auto) 0.3 (0.0-0.5) % Neut % (Auto) 87.1 H (38.0-78.0) % Lymph % (Auto) 3.2 L (15.5-49.0) % [place] % (Auto) 9.1 (1.0-12.0) % Eos % (Auto) 0.1 (0.0-7.0) % Baso % (Auto) 0.2 (0.0-2.0) % Lymph # (Auto) 0.31 L (1.50-4.80) K/mcL [place] # (Auto) 0.88 (0.10-0.90) K/mcL Eos # (Auto) 0.01 (0.00-0.70) K/mcL Baso # (Auto) 0.02 (0.00-0.30) K/mcL Immature Gran # 0.03 (0.00-0.05) K/mcl Absolute Neutrophils 8.44 H (1.80-8.00) K/mcL POC VBG pH 7.36 (7.32-7.42) POC VBG pCO2 at Temp 49.0 (41-51) POC VBG pO2 15 L (25-40) POC VBG HCO3 27.8 (24-28) POC VBG Total CO2 29.0 (25-29) POC Venous O2 Sat 19.0 L (40-70) POC VBG Base Excess 2.0 (-2-2) VBG Lactic Acid 1.1 (0.5-2) POC Sodium 141 (133-145) POC Potassium 4.2 (3.3-5.1) POC Chloride 104 (96-108) POC Total CO2 27.0 (22-30) POC BUN 20 (6-20) POC Creatinine 1.0 (0.6-1.2) POC Glucose 144 H (70-105) POC WB Ioniz Calcium 1.20 (1.16-1.32) Procalcitonin (<0.10) ng/mL 12/17/22 Range/Units 21:45 WBC (4.5-11.0) K/mcL RBC (4.63-6.08) M/mcL Hgb (13.7-17.5) g/dL Hct (40.1-51.0) % POC Hct (41-55) MCV (80.0-100.0) fL MCH (26.0-34.0) pg MCHC (31.0-36.0) g/dL RDW (11.5-14.5) % Plt Count (140-440) K/mcL MPV (8.8-12.5) fL Immature Gran % (Auto) (0.0-0.5) % Neut % (Auto) (38.0-78.0) % Lymph % (Auto) (15.5-49.0) % [place] % (Auto) (1.0-12.0) % Eos % (Auto) (0.0-7.0) % Baso % (Auto) (0.0-2.0) % Lymph # (Auto) (1.50-4.80) K/mcL [place] # (Auto) (0.10-0.90) K/mcL Eos # (Auto) (0.00-0.70) K/mcL Baso # (Auto) (0.00-0.30) K/mcL Immature Gran # (0.00-0.05) K/mcl Absolute Neutrophils (1.80-8.00) K/mcL POC VBG pH (7.32-7.42) POC VBG pCO2 at Temp (41-51) POC VBG pO2 (25-40) POC VBG HCO3 (24-28) POC VBG Total CO2 (25-29) POC Venous O2 Sat (40-70) POC VBG Base Excess (-2-2) VBG Lactic Acid (0.5-2) POC Sodium (133-145) POC Potassium (3.3-5.1) POC Chloride (96-108) POC Total CO2 (22-30) POC BUN (6-20) POC Creatinine (0.6-1.2) POC Glucose (70-105) POC WB Ioniz Calcium (1.16-1.32) Procalcitonin 0.15 H (<0.10) ng/mL ED POC Tests ED POC Tests: VIKTORIYA - Influenza A Negative VIKTORIYA - Influenza B Negative VIKTORIYA - SARS Antigen Negative Discharge Plan Patient/Caregiver Discharge Instructions Pt seen by BROOMMAKER/PA only: No Clinical Impression: Pneumonia Patient Disposition: Xfer As Inpt ([facility]) Condition: Fair Discharge Date/Time: 09/27/22 23:05
[2022-09-27 21:28] LABS: POC Calcium, Ionized 1.2 (1.16-1.32); POC Potassium 4.2 (3.3-5.1)
[2022-09-27] MEDS ORDERED: 0.9 % SODIUM CHLORIDE 500 ML IV ONE ×2 (21:38→22:36)
[2022-09-27 22:13] LABS: Basophils # (Auto) 0.02 K/mcL (0.00-0.30); Basophils % (Auto) 0.2 % (0.0-2.0); Eosinophils # (Auto) 0.01 K/mcL (0.00-0.70); Eosinophils % (Auto) 0.1 % (0.0-7.0); Hematocrit 41.2 % (40.1-51.0); Hemoglobin 12.8 g/dL (13.7-17.5); Lymphocytes # (Auto) 0.31 K/mcL (1.50-4.80); Lymphocytes % (Auto) 3.2 % (15.5-49.0); Mean Cell Volume 94.3 fL (80.0-100.0); Mean Corpuscular HGB Conc 31.1 g/dL (31.0-36.0); Mean Platelet Volume 10.5 fL (8.8-12.5); Monocytes # (Auto) 0.88 K/mcL (0.10-0.90); Monocytes % (Auto) 9.1 % (1.0-12.0); Neutrophils % (Auto) 87.1 % (38.0-78.0); Platelet Count 197 K/mcL (140-440); RBC 4.37 M/mcL (4.63-6.08); WBC 9.7 K/mcL (4.5-11.0)
[2022-09-27] MEDS ORDERED: cefTRIAXone 1 GM VIAL IV ONE (22:16)
[2022-09-27] MEDS ORDERED: AZITHROMYCIN 500 MG in DEXTROSE 5% IN WATER 250 ML IV ONE (22:36)
[2022-09-27] MEDS ORDERED: ONDANSETRON 4 MG/2 ML VIAL IV PRN (22:41)
[2022-09-27] MEDS: LACTATED RINGERS 1,000 ML IV SCH (23:45)
--- NOTE | 2022-09-28 02:28 | XRay Report ---
CLINICAL INFORMATION: Shortness of breath and cough COMPARISON: 08/28/2022 TECHNIQUE: Portable FINDINGS: The heart size, mediastinum and pulmonary vessels are unremarkable. Moderate centrilobular emphysema noted. Right basilar infiltrate has improved with minimal residual. A new small patchy left basilar infiltrate has developed. No definite effusion.. IMPRESSION: Complete interval resolution right basilar infiltrate and new small patchy left basilar infiltrate as developed. Moderate centrilobular emphysema Interpreted and Authenticated by: Brennan Small 09/28/22
--- NOTE | 2022-09-28 08:55 | Internal Med History&Physical ---
HPI History of Present Illness Patient information: Note initiated : 09/28/22 at 8:47 am Service Date, if different from initiated Date: [] Patient: Sadiq Hurley a 87 y/o M admitted on 09/27/22 for Shortness of Breath, productive cough for a month. Chief Complaint: [] History of present illness: .Mr. Hurley is a 87 year old M Patient presents to d/c with shortness of breath productive cough. Patient wears oxygen at home but has becoming increasingly short of breath. Although the cough has been going on for almost a month he says the shortness of breath so severe brought him into the ED. He has had pneumonia in the past from aspiration. Patient felt he was developing pneumonia again. States cough is mostly dry. Patient also complains of fever chills. He complains of left lung pain. In the ED he is tachycardic and mildly tachypneic. Chest x-ray showed a new small infiltrate left base as well as known emphysema. Review of Systems: Pertinent positives as above. Denies headache/fever/chills/nausea/vomiting/chest or abdominal pain/diarrhea. Remaining 10 point review of system reviewed negative PFSH PFSH All Active Problems (Updated 09/28/22 @ 03:37 by Justin Watts MD) Pneumonia (Acute) Community acquired pneumonia (Acute) Colitis (Acute) Dizziness (Acute) Rhinorrhea (Acute) Nocturnal hypoxemia (Chronic) Pulmonary fibrosis (Chronic) Right lower lobe pulmonary nodule (Chronic) Severe chronic obstructive pulmonary disease (Chronic) PVC (premature ventricular contraction) (Chronic) Dehydration (Acute) Dyspnea (Acute) Arrhythmia (Chronic) Pain of right thumb (Chronic) Abdominal pain (Chronic) Urinary incontinence (Chronic) Tachycardia (Chronic) Paresthesia (Chronic) Osteoarthritis (Chronic) Onychomycosis (Chronic) Macular degeneration (Chronic) Irritable bowel syndrome (Chronic) Insomnia (Chronic 12/06/13) Inguinal pain (Chronic 08/26/13) Hypertrophic pyloric stenosis (Chronic) Glaucoma (Chronic 08/26/13) Gastroesophageal reflux (Chronic) Fatigue (Chronic) Dysuria (Chronic) Diverticulosis of colon (Chronic) Dermatitis (Chronic) Colon adenoma (Chronic) COPD (chronic obstructive pulmonary disease) (Chronic) Bilateral cataracts (Chronic) Anxiety (Chronic 12/06/13) Medical History Acute exacerbation of chronic obstructive airways disease Acute exacerbation of chronic obstructive airways disease Resolved. Now on home O2. Anxiety (12/06/13) Family issues Aspiration into airway Bilateral cataracts Bronchitis Bronchitis with bronchospasm Resolved at present Colon adenoma 07/17 Community acquired pneumonia 07/03/2019 bilateral lower and right middle lobes. Possibly aspiration pneumonia. Positive for pneumococcus. Patient finished Levaquin and Flagyl. Pneumonia has resolved. Follow-up CBC, CMP, and UA today. COPD (chronic obstructive pulmonary disease) Managed by pulmonology. Continue Symbicort and nocturnal O2 Albuterol as needed Dermatitis 2010 Monilial Diverticulitis Diverticulitis of intestine follow-up Diverticulosis of colon Dysuria Fatigue Gastroesophageal reflux Glaucoma (08/26/13) Hypertrophic pyloric stenosis Inguinal pain (08/26/13) Insomnia (12/06/13) Irritable bowel syndrome Macular degeneration Nocturnal hypoxemia Onychomycosis Osteoarthritis Paresthesia intermittent, right foot Pneumonia Prostate cancer 2000 Pulmonary fibrosis Right lower lobe pulmonary nodule x2. Follow-up CT in 6 months Sepsis Resolved. Severe chronic obstructive pulmonary disease Oxygen dependent. Continue Symbicort twice daily and albuterol as needed. Refer to pulmonology. 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, uncomplicated diverticulitis Hx of detached retina repair Right Hx of elbow surgery Left Hx of esophagogastroduodenoscopy 08/17 "ok" Hx of inguinal hernia repair 11/08/1996-Right Hx of radical prostatectomy 2001 Family History none listed Diabetes mellitus Cardiac disease father Coronary artery disease Irritable bowel syndrome Acute myocardial infarction brother Irritable bowel syndrome Social History household members: spouse housing: house lives independently: Yes marital status: education level: high school occupational status: retired occupation: Retired [place] [employer] smoking status: Former smoker quit date: 10/12/93 pack-years: 35 alcohol intake frequency: holiday/special occasion only substance use type: does not use MEDS/ALLERGIES Home Medications and Allergies Home Medications Medication Instructions Recorded Confirmed Type latanoprost 0.005 % eye drops 1 drp ophthalmic (eye) QHS 08/09/15 09/28/22 History vit C 226 mg-vit E 90 mg-copper 1 cap PO BID 08/09/15 09/28/22 History 0.8 mg-zinc oxide-lutein 5 mg capsule magnesium oxide 500 mg PO QDAY 07/03/19 09/28/22 History albuterol sulfate 90 mcg/actuation 2 puff inhalation Q6H PRN unknown 11/03/19 09/28/22 Rx aerosol inhaler #18 grams multivitamin with iron (Daily 1 tab PO QDAY 05/22/20 09/28/22 History Multiple Vitamins with Iron tablet) cholecalciferol (vitamin D3) 100 100 mcg PO QDAY 12/14/20 09/28/22 History mcg (4,000 unit) capsule budesonide-formoterol HFA 80 1 inh inhalation BID #6.9 grams 03/31/22 09/28/22 Rx mcg-4.5 mcg/actuation aerosol inhaler Spiriva Respimat 2.5 mcg/actuation 2 puff inhalation Q24H #4 grams 07/30/22 09/28/22 Rx solution for inhalation (tiotropium bromide) albuterol sulfate 90 mcg/actuation 2 inh inhalation Q4H PRN shortness 08/29/22 09/28/22 Rx breath activated powder inhaler of breath or wheezing #1 ea trazodone 50 mg tablet 50 mg PO QHS PRN insomnia 09/27/22 09/28/22 History Allergies Allergy/AdvReac Type Severity Reaction Status Date / Time Penicillins Allergy Severe Hives, Verified 09/27/22 21:17 Swelling, difficulty breathing. Amoxicillin Allergy Verified 09/27/22 21:17 EXAM Constitutional Vitals: Temp Pulse Resp BP Pulse Ox O2 Del Method O2 Flow Rate 98.3 F 87 22 118/64 96 2 09/28/22 04:00 09/28/22 04:00 09/28/22 04:00 09/28/22 04:00 09/28/22 04:00 09/28/22 04:00 09/28/22 04:00 Exam: General: Alert, Awake, No acute Distress Eyes/N/T: EOMI, PERRL, dry MM Head/Neck: neck supple, normocephalic atraumatic CV: RRR, No murmurs, normal s1/s2 Pulm: Rales/rhonchi b/l, no wheezing Abd: soft, nontender, +BS x4 Ext: no clubbing/cyanosis/edema Neuro: Alert, no focal deficits, moves all extremities, CN 2-12 grossly intact, sensations intact b/l upper/lower Skin: warm/dry DATA Data Completed and Pending Labs: Labs from last 24 hours 09/27/22 09/27/22 09/27/22 21:45 21:38 21:23 WBC 9.7 RBC 4.37 L Hgb 12.8 L Hct 41.2 POC Hct MCV 94.3 MCH 29.3 MCHC 31.1 RDW 14.0 Plt Count 197 MPV 10.5 Immature Gran % (Auto) 0.3 Neut % (Auto) 87.1 H Lymph % (Auto) 3.2 L [place] % (Auto) 9.1 Eos % (Auto) 0.1 Baso % (Auto) 0.2 Lymph # (Auto) 0.31 L [place] # (Auto) 0.88 Eos # (Auto) 0.01 Baso # (Auto) 0.02 Immature Gran # 0.03 Absolute Neutrophils 8.44 H POC VBG pH 7.36 POC VBG pCO2 at Temp 49.0 POC VBG pO2 15 L POC VBG HCO3 27.8 POC VBG Total CO2 29.0 POC Venous O2 Sat 19.0 L POC VBG Base Excess 2.0 VBG Lactic Acid 1.1 POC Sodium POC Potassium POC Chloride POC Total CO2 POC BUN POC Creatinine POC Glucose POC WB Ioniz Calcium Procalcitonin 0.15 H 09/27/22 21:23 WBC RBC Hgb Hct POC Hct 42.0 MCV MCH MCHC RDW Plt Count MPV Immature Gran % (Auto) Neut % (Auto) Lymph % (Auto) [place] % (Auto) Eos % (Auto) Baso % (Auto) Lymph # (Auto) [place] # (Auto) Eos # (Auto) Baso # (Auto) Immature Gran # Absolute Neutrophils POC VBG pH POC VBG pCO2 at Temp POC VBG pO2 POC VBG HCO3 POC VBG Total CO2 POC Venous O2 Sat POC VBG Base Excess VBG Lactic Acid POC Sodium 141 POC Potassium 4.2 POC Chloride 104 POC Total CO2 27.0 POC BUN 20 POC Creatinine 1.0 POC Glucose 144 H POC WB Ioniz Calcium 1.20 Procalcitonin A/P Narrative A/P Narrative: A: *Acute on chronic hypoxic respiratory failure: - *PNA LLL: *Sepsis (tachycardia/tachypnea): *COPD(2L@night at home) *Generalized weakness/deconditioning: *Anemia, chronic: * P: -Abx, pending SC -rvp -O2 supp wean off while awake -IS/Acapella -ST eval, bedside today -home ih's, prn neb -f/u cbc/chem - -PT/OT -ppx: Lovenox Time Spent With Patient Time: Total time spent is greater than 50% in coordination of care (as documented) at patient's floor/unit and/or counseling patient: Total time spent with greater than 50% in coordination of care (as documented) at patient's floor/unit and/or counseling patient:: Greater than 70 minutes QUALITY VTE Deep Vein Thrombosis/Pulmonary Embolism Present on Admission: No
--- NOTE | 2022-09-28 09:44 | EKG ---
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
[2022-09-28] MEDS ORDERED: POTASSIUM CHLORIDE 20 MEQ TABLET PO PRN ×2 (09:45)
[2022-09-28] MEDS ORDERED: POTASSIUM CHLORIDE 40 MEQ in DEXTROSE 5% IN WATER 500 ML IV PRN (09:45)
[2022-09-28] MEDS ORDERED: ONDANSETRON 4 MG/2 ML VIAL IV PRN (09:45)
[2022-09-28] MEDS ORDERED: SENNOSIDES 1 TABLET PO PRN (09:45)
[2022-09-28] MEDS ORDERED: MAGNESIUM SULFATE 2 GM/50 ML BAG IV PRN (09:45)
[2022-09-28] MEDS ORDERED: POLYETHYLENE GLYCOL 3350 17 GM PACKET PO PRN (09:45)
[2022-09-28] MEDS ORDERED: IPRATROPIUM/ALBUTEROL 3 ML AMPUL.NEB NEB PRN (09:45)
[2022-09-28] MEDS ORDERED: cefTRIAXone 1 GM in DEXTROSE 5% IN WATER 50 ML IV SCH (09:45)
[2022-09-28] MEDS ORDERED: ACETAMINOPHEN 325 MG TABLET PO PRN (09:45)
[2022-09-28] MEDS: 0.9 % SODIUM CHLORIDE 10 ML SYRINGE IV SCH ×2 (14:35→20:08)
[2022-09-28 14:45] LABS: Anisocytosis 1+ (None Seen); Band Neutrophils % 2 % (0-10); Basophils % (Manual) 1 % (0-2); Eosinophils % (Manual) 2 % (0-7); Hypochromasia 1+ (None Seen); Lymphocytes % 14 % (15-49); Macrocytosis 1+ (None Seen); Monocytes % (Manual) 8 % (1-12); Platelet Estimate NORMAL (Normal); RBC Morphology ABNORMAL (Normal); Segmented Neutrophils % 73 % (38-78)
[2022-09-28] MEDS: AZITHROMYCIN 500 MG in DEXTROSE 5% IN WATER 250 ML IV SCH (14:46)
[2022-09-28] MEDS: cefTRIAXone 1 GM VIAL IV SCH (14:47)
[2022-09-28] MEDS: LACTATED RINGERS 1,000 ML IV SCH ×2 (14:47→20:12)
[2022-09-28] MEDS: DOCUSATE SODIUM 100 MG CAPSULE PO SCH (20:22)
[2022-09-28] MEDS: traZODone HCL 50 MG TABLET PO PRN (20:48)
[2022-09-28] MEDS: LATANOPROST OPHTH DROPS 2.5ML BOTTLE OU SCH (21:42)
[2022-09-28] MEDS: Budesonide-Formoterol 80-4.5 mcg Inhaler INH SCH (21:42)
[2022-09-29] MEDS: LACTATED RINGERS 1,000 ML IV SCH ×2 (00:15→13:20)
[2022-09-29] MEDS: 0.9 % SODIUM CHLORIDE 10 ML SYRINGE IV SCH ×3 (04:25→21:10)
[2022-09-29 06:42] LABS: Basophils # (Auto) 0.02 K/mcL (0.00-0.30); Basophils % (Auto) 0.3 % (0.0-2.0); Eosinophils # (Auto) 0.09 K/mcL (0.00-0.70); Eosinophils % (Auto) 1.1 % (0.0-7.0); Hematocrit 34.3 % (40.1-51.0); Hemoglobin 10.7 g/dL (13.7-17.5); Lymphocytes % (Auto) 7.5 % (15.5-49.0); Mean Corpuscular HGB Conc 31.2 g/dL (31.0-36.0); Mean Platelet Volume 10.5 fL (8.8-12.5); Monocytes # (Auto) 0.96 K/mcL (0.10-0.90); Neutrophils % (Auto) 78.7 % (38.0-78.0); Platelet Count 131 K/mcL (140-440); RBC 3.61 M/mcL (4.63-6.08); Red Cell Distribution Width 14.1 % (11.5-14.5)
[2022-09-29 06:56] LABS: ALT/SGPT 7 U/L (<40); AST/SGOT 15 U/L (<40); Albumin 2.9 gm/dL (3.2-5.2); Alkaline Phosphatase 98 U/L (39-117); Bilirubin,Direct < 0.2 mg/dL (0-0.3); Bilirubin,Total 0.6 mg/dL (0.1-1.0); Blood Urea Nitrogen 12 mg/dL (8-23); Calcium 8.9 mg/dL (8.6-10.4); Carbon Dioxide 28 mmol/L (22-30); Chloride 103 mmol/L (96-108); Globulin 2.9 gm/dL (2.2-3.7); Glomerular Filtration Rate 80; Glucose 116 mg/dL (70-105); Lactate Dehydrogenase 182 U/L (135-225); Phosphorous 2.5 mg/dL (2.5-4.5); Triglycerides 61 mg/dL (<150)
--- NOTE | 2022-09-29 07:53 | Internal Med Progress Note ---
SUBJECTIVE Subjective Patient information: Note initiated : 09/29/22 at 7:50 am Service Date, if different from initiated Date: [] Patient: Sadiq Hurley a 87 y/o M admitted on 09/27/22 for Shortness of Breath, productive cough for a month. Chief Complaint: [] Interval history: History of present illness: Mr. Hurley is a 87 year old M Patient presents to d/c with shortness of breath productive cough. Patient wears oxygen at home but has becoming increasingly short of breath. Although the cough has been going on for almost a month he says the shortness of breath so severe brought him into the ED. He has had pneumonia in the past from aspiration. Patient felt he was developing pneumonia again. States cough is mostly dry. Patient also complains of fever chills. He complains of left lung pain. In the ED he is tachycardic and mildly tachypneic. Chest x-ray showed a new small infiltrate left base as well as known emphysema. 09/28 Patient feeling little better today. Shortness of breath mildly improved. Has occasional cough. On oxygen currently while awake. Will need to try to wean off. Pending speech therapy eval. Review of Systems: denies headache/fever/chills/nausea/vomiting/chest or abdominal pain/diarrhea. Otherwise see above. Constitutional Vitals: Vital Signs Temp Pulse Resp BP Pulse Ox O2 Del Method O2 Flow Rate 98.4 F 85 16 121/69 95 2 09/29/22 03:36 09/29/22 06:27 09/29/22 06:27 09/29/22 03:36 09/29/22 06:27 09/29/22 06:27 09/29/22 06:27 Period Temp Pulse Resp BP Sys/Gordon Pulse Ox O2 Del Method O2 Flow Rate Last 24 Hr 97.5 F-98.4 F 74-85 - 121-132/60-75 94-97 Nasal Cannula- Room Air 2-2 Intake and Output 09/28/22 09/29/22 09/29/22 19:59 03:59 11:59 Intake Total 726 947 480 Output Total 800 1000 650 Balance -74 -53 -170 Weight 73.68 kg Intake & Output: Intake & Output 09/28/22 09/29/22 09/29/22 19:59 03:59 11:59 Intake Total 726 947 480 Output Total 800 1000 650 Balance -74 -53 -170 Weight 73.68 kg Intake: IV 250 947 Zithromax 500 mg In Dextrose 5% 250 in Water 250 ml @ 250 mls/hr IV Q24H [facility] Rx#:[id number] Lactated Ringers 1,000 ml @ 100 947 mls/hr IV .Q10H RICHARD Rx#: [id number] Oral 476 480 Output: Void Amount 800 1000 650 Other: Meal Dinner Percent of Meal Consumed 50% Feeding Ability Independent Urine Appearance Clear Clear Clear Urine Color Dark Yellow Yellow Yellow Urine Odor Normal Normal Stool Size Smear Stool Color Brown Exam: General: Alert, Awake, No acute Distress Eyes/N/T: EOMI, Head/Neck: neck supple, CV: RRR, No murmurs, Pulm: impvoving Rales/rhonchi b/l, no wheezing Abd: soft, nontender, +BS x4 Ext: no clubbing/cyanosis/edema Neuro: Alert, no focal deficits, moves all extremities, Skin: warm/dry OBJ DATA Labs CBC & Chem 7: 09/29/22 05:11 09/29/22 05:11 Labs: Abnormal Lab Results 09/29/22 09/29/22 09/28/22 05:11 05:11 10:38 RBC 3.61 L Hgb 10.7 L Hct 34.3 L Plt Count 131 L Neut % (Auto) 78.7 H Lymph % (Auto) 7.5 L Lymph # (Auto) 0.60 L [place] # (Auto) 0.96 H Lymphocytes % Absolute Neutrophils RBC Morphology Hypochromasia Anisocytosis Macrocytosis POC VBG pO2 POC Venous O2 Sat Anion Gap 6.0 L Glucose 116 H POC Glucose C-Reactive Protein 10.00 H Total Protein 5.8 L Albumin 2.9 L Procalcitonin 09/28/22 09/27/22 09/27/22 10:38 21:45 21:38 RBC 4.37 L Hgb 12.8 L Hct Plt Count Neut % (Auto) 87.1 H Lymph % (Auto) 3.2 L Lymph # (Auto) 0.31 L [place] # (Auto) Lymphocytes % 14 L Absolute Neutrophils 8.44 H RBC Morphology Abnormal A Hypochromasia 1+ A Anisocytosis 1+ A Macrocytosis 1+ A POC VBG pO2 POC Venous O2 Sat Anion Gap Glucose POC Glucose C-Reactive Protein Total Protein Albumin Procalcitonin 0.15 H 09/27/22 09/27/22 21:23 21:23 RBC Hgb Hct Plt Count Neut % (Auto) Lymph % (Auto) Lymph # (Auto) [place] # (Auto) Lymphocytes % Absolute Neutrophils RBC Morphology Hypochromasia Anisocytosis Macrocytosis POC VBG pO2 15 L POC Venous O2 Sat 19.0 L Anion Gap Glucose POC Glucose 144 H C-Reactive Protein Total Protein Albumin Procalcitonin Meds: Medications Acetaminophen (Acetaminophen 325 Mg Tablet) 650 mg PO Q6HP PRN; Protocol PRN Reason: Per Pain Protocol/Fever > 101 Albuterol/Ipratropium (Ipratropium/Albuterol 3 Ml Ampul.Neb) 3 ml NEB Q4HP PRN PRN Reason: Shortness Of Breath Ceftriaxone Sodium (Ceftriaxone 1 Gm Vial) 1 gm IV Q24H [facility] Last Admin: 09/28/22 14:47 Dose: 1 gm Docusate Sodium (Docusate Sodium 100 Mg Capsule) 100 mg PO BID [facility] Last Admin: 09/28/22 20:22 Dose: 100 mg Enoxaparin Sodium (Enoxaparin 40 Mg/0.4 Ml Syringe) 40 mg SQ DAILY [facility] Lactated Ringer's (Lactated Ringers) 1,000 mls @ 100 mls/hr IV .Q10H [facility] Last Admin: 09/29/22 00:15 Dose: 100 mls/hr Potassium Chloride 40 meq/ (Dextrose) 520 mls @ 130 mls/hr IV UD PRN PRN Reason: Potassium < 3 Magnesium Sulfate (Magnesium Sulfate) 2 gm in 50 mls @ 50 mls/hr IV UD PRN PRN Reason: Magnesium </= 1.6 Azithromycin 500 mg/ Dextrose 250 mls @ 250 mls/hr IV Q24H [facility]; Protocol Stop: 09/29/22 14:59 Last Infusion: 09/28/22 15:40 Dose: Infused Latanoprost (Latanoprost Ophth Drops 2.5ml Bottle) 1 gtt OU QHS [facility] Last Admin: 09/28/22 21:42 Dose: Not Given Ondansetron HCl (Ondansetron 4 Mg/2 Ml Vial) 4 mg IV Q4HP PRN; Protocol PRN Reason: Nausea And Vomiting Ondansetron HCl (Ondansetron 4 Mg/2 Ml Vial) 4 mg IV Q4HP PRN PRN Reason: Nausea And Vomiting Tiotropium [place] [ Spiriva Respimat] 2. 5 Mcg Inhaler 2 dose INH DAILY [facility] Budesonide- Formoterol 80-4.5 Mcg Inhaler 1 dose INH BID [facility] Last Admin: 09/28/22 21:42 Dose: Not Given Polyethylene Glycol (Polyethylene Glycol 3350 17 Gm Packet) 17 gm PO DAILYP PRN PRN Reason: Constipation Potassium Chloride (Potassium Chloride 20 Meq Tablet) 40 meq PO UD PRN PRN Reason: Potssium is 3-3.5 Potassium Chloride (Potassium Chloride 20 Meq Tablet) 40 meq PO UD PRN PRN Reason: Potassium < 3 Senna (Sennosides 1 Tablet) 2 tab PO DAILYP PRN PRN Reason: Constipation Sodium Chloride (0.9 % Sodium Chloride 10 Ml Syringe) 10 ml IV Q8 [facility] Last Admin: 09/29/22 04:25 Dose: 10 ml Trazodone HCl (Trazodone Hcl 50 Mg Tablet) 50 mg PO QHS PRN PRN Reason: insomnia Last Admin: 09/28/22 20:48 Dose: 50 mg A/P Narrative A/P Narrative: A: *Acute on chronic hypoxic respiratory failure: -still on O2 this morning *PNA LLL: *Sepsis (tachycardia/tachypnea): improving *COPD(2L@night at home) *Generalized weakness/deconditioning: *Anemia, chronic: P: -Abx, pending SC -strep pending -O2 supp wean off while awake as able -IS/Acapella -ST eval -home ih's, prn neb -f/u cbc/chem -PT/OT -ppx: Lovenox Time Spent With Patient Time: Total time spent is greater than 50% in coordination of care (as documented) at patient's floor/unit and/or counseling patient: Total time spent with greater than 50% in coordination of care (as documented) at patient's floor/unit and/or counseling patient:: 35 - 50 minutes QUALITY VTE Deep Vein Thrombosis/Pulmonary Embolism Present on Admission: No
[2022-09-29] MEDS: DOCUSATE SODIUM 100 MG CAPSULE PO SCH ×2 (09:07→21:04)
[2022-09-29] MEDS: ENOXAPARIN 40 MG/0.4 ML SYRINGE SQ SCH (09:07)
[2022-09-29] MEDS: Budesonide-Formoterol 80-4.5 mcg Inhaler INH SCH ×2 (09:08→21:04)
[2022-09-29] MEDS: Tiotropium Bromide [Spiriva Respimat] 2.5 mcg Inhaler INH SCH (09:08)
[2022-09-29] MEDS: cefTRIAXone 1 GM VIAL IV SCH (09:16)
[2022-09-29] MEDS: AZITHROMYCIN 500 MG in DEXTROSE 5% IN WATER 250 ML IV SCH (10:17)
--- NOTE | 2022-09-29 10:35 | Discharge Summary ---
Discharge Provider Provider IMPORTANT FOLLOW-UP INFORMATION FOR PCP: Patient information: Note initiated : 09/29/22 at 10:33 am Service Date, if different from initiated Date: [] Patient: Sadiq Hurley 87 y/o M admitted on 09/27/22 for Shortness of Breath, productive cough for a month. Chief Complaint: [] Date of admission: 09/27/22 23:05 Discharge date: 09/30/22 Primary care physician: Brennan Kelly DO Consults: 09/27/22 Consult to Physician [CONS] Stat Comment: Consulting Provider: Yony Siegel Reason For Exam: Physician to Consult COURSE Hospital Course Hospital course: History of present illness: Mr. Hurley is a 87 year old M Patient presents to d/c with shortness of breath productive cough. Patient wears oxygen at home but has becoming increasingly short of breath. Although the cough has been going on for almost a month he says the shortness of breath so severe brought him into the ED. He has had pneumonia in the past from aspiration. Patient felt he was developing pneumonia again. States cough is mostly dry. Patient also complains of fever chills. He complains of left lung pain. In the ED he is tachycardic and mildly tachypneic. Chest x-ray showed a new small infiltrate left base as well as known emphysema. 09/28 Patient feeling little better today. Shortness of breath mildly improved. Has occasional cough. On oxygen currently while awake. Will need to try to wean off. Pending speech therapy eval. 09/29 Patient continues to feel gradual improvement. Pending speech therapy evaluation. Continue to wean down oxygen as able. 09/30 Patient doing well, desiring to go home. RT to evaluate his oxygen requirements with activity and while awake. A: *Acute on chronic hypoxic respiratory failure: *PNA LLL: *Sepsis (tachycardia/tachypnea): improving *COPD(2L@night at home) *Generalized weakness/deconditioning: *Anemia, chronic: P: -Abx Discharge diagnosis: Acute hypoxic respite failure pneumonia sepsis Secondary discharge diagnosis: COPD generalized weakness deconditioning and chronic anemia Time Spent with Patient Time attestation: Total time spent providing and/or coordinating discharge services: Time spent: Greater than 30 minutes EXAM Constitutional Vitals: Temp Pulse Resp BP Pulse Ox O2 Del Method O2 Flow Rate 97.9 F 82 20 128/75 96 2 09/29/22 08:00 09/29/22 08:00 09/29/22 08:00 09/29/22 08:00 09/29/22 08:00 09/29/22 08:00 09/29/22 08:00 Discharge Data Data Completed and Pending Labs on day of discharge: Labs from last 24 hours 09/29/22 09/29/22 09/28/22 05:11 05:11 10:38 WBC 8.0 RBC 3.61 L Hgb 10.7 L Hct 34.3 L MCV 95.0 MCH 29.6 MCHC 31.2 RDW 14.1 Plt Count 131 L MPV 10.5 Immature Gran % (Auto) 0.4 Neut % (Auto) 78.7 H Lymph % (Auto) 7.5 L [place] % (Auto) 12.0 Eos % (Auto) 1.1 Baso % (Auto) 0.3 Lymph # (Auto) 0.60 L [place] # (Auto) 0.96 H Eos # (Auto) 0.09 Baso # (Auto) 0.02 Seg Neutrophils % Band Neutrophils % Lymphocytes % Monocytes % (Manual) Eosinophils % (Manual) Basophils % (Manual) Immature Gran # 0.03 Absolute Neutrophils 6.27 Platelet Estimate RBC Morphology Hypochromasia Anisocytosis Macrocytosis Sodium 137 Potassium 4.2 Chloride 103 Carbon Dioxide 28 Anion Gap 6.0 L BUN 12 Creatinine 0.8 GFR Calculation 80 Glucose 116 H Uric Acid 4.0 Calcium 8.9 Phosphorus 2.5 Magnesium 2.1 Total Bilirubin 0.6 Direct Bilirubin < 0.2 GGT 11 AST 15 ALT 7 Alkaline Phosphatase 98 Lactate Dehydrogenase 182 C-Reactive Protein 10.00 H Total Protein 5.8 L Albumin 2.9 L Globulin 2.9 Albumin/Globulin Ratio 1.0 Triglycerides 61 09/28/22 10:38 WBC RBC Hgb Hct MCV MCH MCHC RDW Plt Count MPV Immature Gran % (Auto) Neut % (Auto) Lymph % (Auto) [place] % (Auto) Eos % (Auto) Baso % (Auto) Lymph # (Auto) [place] # (Auto) Eos # (Auto) Baso # (Auto) Seg Neutrophils % 73 Band Neutrophils % 2 Lymphocytes % 14 L Monocytes % (Manual) 8 Eosinophils % (Manual) 2 Basophils % (Manual) 1 Immature Gran # Absolute Neutrophils Platelet Estimate Normal RBC Morphology Abnormal A Hypochromasia 1+ A Anisocytosis 1+ A Macrocytosis 1+ A Sodium Potassium Chloride Carbon Dioxide Anion Gap BUN Creatinine GFR Calculation Glucose Uric Acid Calcium Phosphorus Magnesium Total Bilirubin Direct Bilirubin GGT AST ALT Alkaline Phosphatase Lactate Dehydrogenase C-Reactive Protein Total Protein Albumin Globulin Albumin/Globulin Ratio Triglycerides Preliminary micro results at discharge 09/27/22 22:19 Blood Culture - Preliminary Blood 09/27/22 22:10 Blood Culture - Preliminary Blood Discharge Plan Patient/Caregiver Discharge Instructions Activity: increase activity as tolerated Diet: Regular Diet Prescriptions: New cefdinir 300 mg capsule 300 mg PO BID Qty: 5 0RF Continued albuterol sulfate 90 mcg/actuation HFA aerosol inhaler 2 puff INHALATION Q6H PRN (Reason: unknown) Qty: 18 3RF budesonide-formoterol 80-4.5 mcg/actuation HFA aerosol inhaler 1 inh INHALATION BID Qty: 6.9 5RF Spiriva Respimat 2.5 mcg/actuation mist 2 puff inhalation Q24H Qty: 4 6RF multivitamin with iron [Daily Multiple Vitamins/Iron] Tablet 1 tab PO QDAY latanoprost 0.005 % drops 1 drp OPHTHALMIC QHS vit Q-[id number]-iygmux-zinc-lutein 226-200-5-0.8 vh-dpnw-jz-mg capsule 1 cap PO BID cholecalciferol (vitamin D3) 100 mcg (4,000 unit) capsule 100 mcg PO QDAY magnesium oxide 200 MG tablet 500 mg PO QDAY Rx Instructions: stated takes two 250mg albuterol sulfate 90 mcg/actuation aerosol powdr breath activated 2 inh inhalation Q4H PRN (Reason: shortness of breath or wheezing) Qty: 1 6RF trazodone 50 mg tablet 50 mg PO QHS PRN (Reason: insomnia) Follow Up Plan Follow up with: Brennan Kelly DO [Primary Care Provider] - Patient Disposition: Home, Self-Care Prognosis: Fair Overall status at discharge: patient is progressing back to baseline Discharge Orders: Discharge Order (Routine); Ordered 09/30/22 Ordered By: Yony ROSS VTE Deep Vein Thrombosis/Pulmonary Embolism Present on Admission: No
[2022-09-29] MEDS: BUDESONIDE 0.5 MG/2 ML AMPUL.NEB NEB SCH ×2 (21:05→21:50)
[2022-09-29] MEDS: LATANOPROST OPHTH DROPS 2.5ML BOTTLE OU SCH (21:05)
[2022-09-29] MEDS: traZODone HCL 50 MG TABLET PO PRN (22:49)
[2022-09-30] MEDS: 0.9 % SODIUM CHLORIDE 10 ML SYRINGE IV SCH (04:31)
[2022-09-30] MEDS: Tiotropium Bromide [Spiriva Respimat] 2.5 mcg Inhaler INH SCH (07:45)
[2022-09-30] MEDS: Budesonide-Formoterol 80-4.5 mcg Inhaler INH SCH (07:45)
[2022-09-30] MEDS: BUDESONIDE 0.5 MG/2 ML AMPUL.NEB NEB SCH (08:58)
[2022-09-30] MEDS: DOCUSATE SODIUM 100 MG CAPSULE PO SCH (10:46)
[2022-09-30] MEDS: cefTRIAXone 1 GM VIAL IV SCH (10:46)
[2022-09-30] MEDS: ENOXAPARIN 40 MG/0.4 ML SYRINGE SQ SCH (10:47)
== END 2022-09-30 13:40 | disposition home or self-care (01) | DRG 189 ==
LOC: ED 21:07 → MEDSUR 23:05
PROVIDERS: ADMIT Internal Medicine; ATTEND Internal Medicine

== ENCOUNTER 2025-02-04 18:40 | Inpatient (IN) ==
[2025-02-04] MEDS ORDERED: IOPAMIDOL 50 ML BOTTLE IV ONE (18:41)
[2025-02-04 19:09] LABS: Basophils # (Auto) 0.04 K/mcL (0.00-0.30); Basophils % (Auto) 0.5 % (0.0-2.0); Eosinophils # (Auto) 0.12 K/mcL (0.00-0.70); Eosinophils % (Auto) 1.6 % (0.0-7.0); Hematocrit 33.8 % (40.1-51.0); Hemoglobin 10.3 g/dL (13.7-17.5); Lymphocytes # (Auto) 0.88 K/mcL (1.50-4.80); Lymphocytes % (Auto) 11.7 % (15.5-49.0); Mean Cell Volume 95.8 fL (80.0-100.0); Mean Corpuscular HGB Conc 30.5 g/dL (31.0-36.0); Mean Platelet Volume 10.1 fL (8.8-12.5); Monocytes # (Auto) 0.81 K/mcL (0.10-0.90); Monocytes % (Auto) 10.8 % (1.0-12.0); Neutrophils % (Auto) 75.3 % (38.0-78.0); Platelet Count 244 K/mcL (140-440); RBC 3.53 M/mcL (4.63-6.08); Red Cell Distribution Width 14.3 % (11.5-14.5); WBC 7.5 K/mcL (4.5-11.0)
[2025-02-04 19:31] LABS: ALT/SGPT 13 U/L (<40); AST/SGOT 23 U/L (<40); Albumin 3.7 gm/dL (3.2-5.2); Albumin/Globulin Ratio 1.4 (1.0-2.3); Alkaline Phosphatase 106 U/L (39-117); Bilirubin,Total 0.3 mg/dL (0.1-1.0); Blood Urea Nitrogen 19 mg/dL (8-23); Calcium 9.1 mg/dL (8.6-10.4); Carbon Dioxide 25 mmol/L (22-30); Chloride 102 mmol/L (96-108); Globulin 2.7 gm/dL (2.2-3.7); Glomerular Filtration Rate 75; Glucose 104 mg/dL (70-105); Potassium 4.3 mmol/L (3.3-5.1); Sodium 138 mmol/L (133-145)
[2025-02-04] MEDS: morphine 4 MG/ML VIAL IV ONE (19:35)
[2025-02-04] MEDS ORDERED: HYDROmorphone 0.5 MG/0.5 ML SYRINGE IV PRN (21:41)
[2025-02-04] MEDS ORDERED: ONDANSETRON 4 MG/2 ML VIAL IV PRN (21:43)
[2025-02-04] MEDS ORDERED: ALBUTEROL SULFATE 60 PUFF INHALER INH PRN (21:53)
[2025-02-04] MEDS: LACTATED RINGERS 1,000 ML IV SCH (23:01)
[2025-02-04] MEDS: DEXTROSE 5%-LR 1,000 ML IV SCH (23:53)
[2025-02-05 06:25] LABS: Hematocrit 33.9 % (40.1-51.0); Hemoglobin 10.2 g/dL (13.7-17.5); Mean Cell Volume 97.7 fL (80.0-100.0); Mean Corpuscular HGB Conc 30.1 g/dL (31.0-36.0); Mean Platelet Volume 10.3 fL (8.8-12.5); Platelet Count 219 K/mcL (140-440); RBC 3.47 M/mcL (4.63-6.08); Red Cell Distribution Width 14.3 % (11.5-14.5); WBC 6.2 K/mcL (4.5-11.0)
[2025-02-05 06:48] LABS: Blood Urea Nitrogen 14 mg/dL (8-23); Calcium 9.1 mg/dL (8.6-10.4); Carbon Dioxide 25 mmol/L (22-30); Chloride 100 mmol/L (96-108); Glomerular Filtration Rate 79; Glucose 92 mg/dL (70-105); Potassium 3.9 mmol/L (3.3-5.1); Sodium 137 mmol/L (133-145)
[2025-02-05] MEDS ORDERED: ALBUTEROL SULFATE 60 PUFF INHALER INH PRN (07:34)
[2025-02-05] MEDS: PANTOPRAZOLE 40 MG VIAL IV SCH (07:42)
[2025-02-05] MEDS: TIOTROPIUM BROMIDE INH SCH (12:13)
[2025-02-05] MEDS: FORMOTEROL INH SCH (12:13)
[2025-02-05] MEDS: BUDESONIDE INH SCH (12:13)
[2025-02-05] MEDS: LATANOPROST OPHTH DROPS 2.5ML BOTTLE OD SCH (20:58)
[2025-02-05] MEDS ORDERED: BUDESONIDE FORMOTEROL INHALATION SCH (21:00)
[2025-02-05] MEDS ORDERED: [UNRECOGNIZED DRUG - OTHER] INHALATION SCH (21:00)
[2025-02-06 06:08] LABS: Hematocrit 34.5 % (40.1-51.0); Hemoglobin 10.7 g/dL (13.7-17.5); Mean Cell Volume 95.8 fL (80.0-100.0); Mean Platelet Volume 10.2 fL (8.8-12.5); Platelet Count 235 K/mcL (140-440); Red Cell Distribution Width 14.2 % (11.5-14.5); WBC 7.1 K/mcL (4.5-11.0)
[2025-02-06 07:00] LABS: Blood Urea Nitrogen 12 mg/dL (8-23); Calcium 9.4 mg/dL (8.6-10.4); Carbon Dioxide 27 mmol/L (22-30); Chloride 103 mmol/L (96-108); Glomerular Filtration Rate 75; Glucose 71 mg/dL (70-105); Potassium 4.9 mmol/L (3.3-5.1); Sodium 140 mmol/L (133-145)
[2025-02-06] MEDS ORDERED: DIATRIZOATE MEGLU/DIATRIZO SOD 120ML BOTTLE PO ONE (12:29)
[2025-02-06 17:58] VITALS: TEMP 98.4; O2SAT 93
== END 2025-02-06 18:13 | disposition home or self-care (01) | DRG 390 ==
LOC: ED 18:40 → MEDSUR 22:24
PROVIDERS: ADMIT Surgery Surgical Critical Care; ATTEND Surgery Surgical Critical Care